=== PATIENT | male | born 1950 | race African-American/Black ===

== ENCOUNTER 2017-08-26 11:47 | Emergency (ER) | payer MEDICAID, OTHER, SELFPAY ==
[~2017-08-26] VITALS: Ht 172.7 cm; Wt 73.0 kg
[2017-08-26] MEDS ORDERED: UNKNOWN BP MED (11:56)
[2017-08-26] MEDS ORDERED: ACETAMINOPHEN 325MG TABLET PO ONE (14:45)
[2017-08-26] MEDS ORDERED: SODIUM CHLORIDE 0.9% 1,000 ML IV ONE (16:18)
[2017-08-26 19:05] VITALS: BP 96/55
== END 2017-08-26 19:16 | disposition home or self-care (01) ==
LOC: EDSEX 12:56 → ER 12:56
DX: M25.521 Pain in right elbow (principal); R06.02 Shortness of breath; R07.89 Other chest pain; I10 Essential (primary) hypertension; R51 Headache; V43.52XA Car driver injured in collision with other type car in traffic accident, initial encounter; Y93.89 Activity, other specified; Y92.410 Unspecified street and highway as the place of occurrence of the external cause; Y99.8 Other external cause status
CPT/HCPCS: 70450; 71111; 73080; 74176; 93005; 96360; 99284; J7030; Z7610

== ENCOUNTER 2022-07-15 16:48 | Inpatient (IN) | payer MEDICARE, MEDICAID ==
[~2022-07-15] VITALS: Ht 172.7 cm; Wt 66.0 kg
[~2022-07-15 16:48] MED LIST: UNKNOWN BP MED
[2022-07-15 17:22] LABS: BG BASE EXCESS -3.7 mmol/L (-2.0-2.0); BG CARBOXYHEMOGLOBIN 2.7 % (0.5-1.5); BG HCO3 ACT 17.9 mmol/L (22.0-26.0); BG METHEMOGLOBIN 0.2 % (0.0-1.5); BG OXYGEN SATURATION 96.9 % (92.0-98.5); BG OXYHEMOGLOBIN 94.1 % (94.0-97.0); BG PCO2 24.7 mmHg (35.0-45.0); BG PH 7.478 (7.350-7.450); BG PO2 82.6 mmHg (75.0-100.0); BG SAMPLE SITE RIGHT RADIAL; BG TOTAL HEMOGLOBIN 14.6 g/dL (12.0-18.0); BG VENT MODE ROOM AIR
[2022-07-15 18:16] LABS: BASOPHILS % 0.5 % (0.0-2.0); EOSINOPHILS % 2.9 % (0.0-5.0); HEMATOCRIT. 45.4 % (42.0-52.0); HEMOGLOBIN. 15.5 g/dL (14.0-18.0); LYMPHOCYTES % 21.1 % (20.0-50.0); MEAN CORPUSCULAR HEMOGLOBIN 30.8 pg (28.0-32.0); MEAN CORPUSCULAR VOLUME 90.4 fL (80.0-94.0); MEAN PLATELET VOLUME 7.7 fl (7.4-10.4); MONOCYTES % 6.6 % (2.0-8.0); NEUTROPHILS % 68.9 % (40.0-76.0); PLATELET 227 x1000/uL (130-400); RED BLOOD CELL COUNT 5.03 mill/uL (4.7-6.1); RED CELL DISTRIBUTION WIDTH 15.1 % (11.6-14.6)
[2022-07-15 18:29] LABS: CHLORIDE 101 mEq/L (98-107)
[2022-07-15 18:42] LABS: ETHANOL BLOOD 13 mg/dL
[2022-07-15] MEDS ORDERED: FUROSEMIDE 20MG/2ML VIAL IVP SCH (20:15)
[2022-07-15] MEDS ORDERED: ASPIRIN 325MG EC TABLET PO NR (20:15)
[2022-07-15] MEDS ORDERED: MORPHINE SULFATE 4 MG/ML CPJ (NOT FOR IM USE) IV SCH (20:15)
[2022-07-15] MEDS ORDERED: MAGNESIUM/ALUMINUM HYDROXIDE/SIMETHICONE 30ML UDC PO PRN (23:00)
[2022-07-15] MEDS ORDERED: ONDANSETRON HCL 4MG/2ML INJ IV PRN (23:00)
[2022-07-15] MEDS ORDERED: IPRATROPIUM/ALBUTEROL 0.5-3(2.5)MG/3ML NEB HHN PRN (23:00)
[2022-07-15] MEDS ORDERED: HYDROCODONE/ACETAMINOPHEN 5/325MG TABLET PO PRN (23:00)
[2022-07-15] MEDS ORDERED: DOCUSATE SODIUM 100MG CAPSULE PO PRN (23:00)
[2022-07-15] MEDS ORDERED: ACETAMINOPHEN 325MG TABLET PO PRN (23:00)
[2022-07-15] MEDS ORDERED: NALOXONE HCL 0.4MG/ML VIAL IV PRN (23:15)
[2022-07-16] VITALS (9 sets, daily range): BP systolic 138–197; BP diastolic 62–97
[2022-07-16] MEDS ORDERED: ASPIRIN 81MG TABLET PO SCH (00:30)
[2022-07-16 01:45] LABS: CLARITY URINE CLEAR (CLEAR); COLOR URINE YELLOW (YELLOW); KETONES URINE NEGATIVE (NEGATIVE); LEUKOCYTE ESTERASE URINE NEGATIVE (NEGATIVE); NITRITE URINE NEGATIVE (NEGATIVE); OCCULT BLOOD URINE NEGATIVE (NEGATIVE); PH URINE 6.5 (4.5-8.0); PROTEIN URINE NEGATIVE (NEGATIVE); SPECIFIC GRAVITY URINE 1.008 (1.005-1.030); UROBILINOGEN URINE 0.2 E.U./dL (0.2-1.0)
[2022-07-16] MEDS ORDERED: ENOXAPARIN 40MG/0.4ML SYR SUBCUT SCH (09:00)
[2022-07-16 09:50] LABS: BASOPHILS % 0.8 % (0.0-2.0); EOSINOPHILS % 10.5 % (0.0-5.0); HEMATOCRIT. 37.7 % (42.0-52.0); HEMOGLOBIN. 12.9 g/dL (14.0-18.0); LYMPHOCYTES % 31.8 % (20.0-50.0); MEAN CORPUSCULAR HEMOGLOBIN 30.7 pg (28.0-32.0); MEAN CORPUSCULAR VOLUME 89.8 fL (80.0-94.0); MONOCYTES % 7.6 % (2.0-8.0); NEUTROPHILS % 49.3 % (40.0-76.0); PLATELET 175 x1000/uL (130-400); RED CELL DISTRIBUTION WIDTH 14.7 % (11.6-14.6)
[2022-07-16 09:58] LABS: INR 1.1; PROTHROMBIN TIME 11.5 sec (9.6-11.0)
[2022-07-16] MEDS: CLOPIDOGREL 75MG TABLET PO SCH (11:48)
[2022-07-16] MEDS: CLONIDINE 0.1MG TABLET PO PRN ×2 (18:31→21:45)
[2022-07-16 20:30] LABS: *AMPHETAMINES SCREEN URINE NEGATIVE (NEGATIVE)
[2022-07-16 20:31] LABS: *BARBITURATES SCREEN URINE NEGATIVE (NEGATIVE); *BENZODIAZEPINES SCREEN URINE NEGATIVE (NEGATIVE); *COCAINE SCREEN URINE NEGATIVE (NEGATIVE); CANNABINOID URINE SCREEN NEGATIVE (NEGATIVE); METHADONE URINE SCREEN NEGATIVE (NEGATIVE); OPIATES URINE SCREEN NEGATIVE (NEGATIVE); PHENCYCLIDINE URINE SCREEN NEGATIVE (NEGATIVE)
[2022-07-16 20:47] LABS: CHLORIDE 104 mEq/L (98-107)
[2022-07-16] MEDS: ATORVASTATIN CALCIUM 40MG TABLET PO SCH ×2 (21:43→21:53)
[2022-07-16 22:05] LABS: CREATINE KINASE 46 IU/L (39-308); CREATINE KINASE MB FRACTION 1.5 ng/mL (0.5-3.6); HDL CHOLESTEROL 50 mg/dL (40-59); LDL CHOLESTEROL 55 mg/dL (5-100)
[2022-07-17] VITALS (9 sets, daily range): BP systolic 150–182; BP diastolic 73–125
[2022-07-17 00:57] LABS: CREATINE KINASE MB FRACTION 1.3 ng/mL (0.5-3.6)
[2022-07-17 06:48] LABS: BASOPHILS % 0.7 % (0.0-2.0); EOSINOPHILS % 13.6 % (0.0-5.0); HEMATOCRIT. 35.1 % (42.0-52.0); LYMPHOCYTES % 26.3 % (20.0-50.0); MEAN CORPUSCULAR HEMOGLOBIN 30.9 pg (28.0-32.0); MEAN CORPUSCULAR VOLUME 90.5 fL (80.0-94.0); MEAN PLATELET VOLUME 8.1 fl (7.4-10.4); MONOCYTES % 7.7 % (2.0-8.0); NEUTROPHILS % 51.7 % (40.0-76.0); PLATELET 145 x1000/uL (130-400); RED BLOOD CELL COUNT 3.87 mill/uL (4.7-6.1); RED CELL DISTRIBUTION WIDTH 14.4 % (11.6-14.6)
[2022-07-17] MEDS: ASPIRIN 81MG TABLET PO SCH (08:25)
[2022-07-17] MEDS: ENOXAPARIN 60MG/0.6ML SYR SUBCUT SCH ×2 (08:25→20:35)
[2022-07-17] MEDS: CLOPIDOGREL 75MG TABLET PO SCH (08:25)
[2022-07-17] MEDS ORDERED: LOSARTAN POTASSIUM 25 MG TABLET PO SCH (09:00)
[2022-07-17] MEDS ORDERED: NITROGLYCERIN SPRAY/4.9GM CAN TL ONE (10:45)
[2022-07-17] MEDS: HYDRALAZINE 20MG/ML VIAL IV PRN (11:57)
[2022-07-17] MEDS ORDERED: IOHEXOL-350 100 ML BOTTLE ONE (13:11)
[2022-07-17] MEDS ORDERED: AMLODIPINE 5MG TABLET PO NR (16:49)
[2022-07-17 20:35] LABS: T4 FREE 1.1 ng/dL (0.76-1.46)
[2022-07-17] MEDS: PANTOPRAZOLE 40MG DR TABLET PO SCH (20:35)
[2022-07-17 21:05] LABS: CHLORIDE 106 mEq/L (98-107)
[2022-07-18 00:14] VITALS: BP 136/86
[2022-07-18 04:00] VITALS: BP 157/94
[2022-07-18] MEDS: PANTOPRAZOLE 40MG DR TABLET PO SCH ×2 (06:18→22:08)
[2022-07-18 06:27] LABS: BASOPHILS % 0.8 % (0.0-2.0); EOSINOPHILS % 12.3 % (0.0-5.0); HEMATOCRIT. 36.1 % (42.0-52.0); HEMOGLOBIN. 12.3 g/dL (14.0-18.0); LYMPHOCYTES % 29.7 % (20.0-50.0); MEAN CORPUSCULAR HEMOGLOBIN 30.6 pg (28.0-32.0); MEAN PLATELET VOLUME 8.2 fl (7.4-10.4); MONOCYTES % 7.5 % (2.0-8.0); NEUTROPHILS % 49.7 % (40.0-76.0); PLATELET 154 x1000/uL (130-400); RED BLOOD CELL COUNT 4.01 mill/uL (4.7-6.1); RED CELL DISTRIBUTION WIDTH 14.2 % (11.6-14.6)
[2022-07-18] MEDS: ASPIRIN 81MG TABLET PO SCH ×2 (07:31→14:10)
[2022-07-18] MEDS: ENOXAPARIN 60MG/0.6ML SYR SUBCUT SCH (07:32)
[2022-07-18] MEDS: CLOPIDOGREL 75MG TABLET PO SCH ×2 (07:32→14:10)
[2022-07-18 08:00] VITALS: BP 148/76
[2022-07-18] MEDS: HYDRALAZINE 20MG/ML VIAL IV PRN (08:08)
[2022-07-18 08:59] LABS: CHLORIDE 105 mEq/L (98-107)
[2022-07-18] MEDS: AMLODIPINE 10MG TABLET PO SCH ×2 (09:00→14:13)
[2022-07-18] MEDS: LOSARTAN POTASSIUM 25 MG TABLET PO SCH ×2 (09:00→22:11)
[2022-07-18 12:00] VITALS: BP 166/77
[2022-07-18] MEDS: HYDRALAZINE HCL 50MG TABLET PO SCH ×2 (14:12→23:20)
[2022-07-18] MEDS ORDERED: IODIXANOL 320MG/ML 100 ML BOTTLE IV ONE (14:13)
[2022-07-18] MEDS ORDERED: MIDAZOLAM HCL 2 MG/2 ML VIAL ONE (15:03)
[2022-07-18] MEDS ORDERED: HEPARIN 1000 UNITS/ML 10ML ONE (15:04)
[2022-07-18] MEDS ORDERED: FENTANYL CITRATE/PF 50MCG/ML 2ML VIAL ONE (15:04)
[2022-07-18] MEDS ORDERED: LIDOCAINE HCL/PF 2% 20MG/ML 5 ML/VIAL ONE (15:05)
[2022-07-18] MEDS ORDERED: ENOXAPARIN 80MG/0.8ML SYR SUBCUT SCH (15:33)
[2022-07-18] MEDS ORDERED: ACETAMINOPHEN 325MG TABLET PO PRN (15:45)
[2022-07-18] MEDS ORDERED: ATROPINE SULFATE 1MG/10ML SYR IV PRN (15:45)
[2022-07-18 16:10] VITALS: BP 146/106
[2022-07-18 20:00] VITALS: BP 107/44
[2022-07-18] MEDS: ATORVASTATIN CALCIUM 40MG TABLET PO SCH (22:08)
[2022-07-18] MEDS: ENOXAPARIN 80MG/0.8ML SYR SUBCUT SCH (22:10)
[2022-07-19] VITALS: BP 113/47
[2022-07-19 04:00] VITALS: BP 135/67
[2022-07-19] MEDS: PANTOPRAZOLE 40MG DR TABLET PO SCH ×2 (06:22→21:34)
[2022-07-19] MEDS: HYDRALAZINE HCL 50MG TABLET PO SCH ×3 (06:27→23:11)
[2022-07-19 07:41] LABS: BASOPHILS % 0.8 % (0.0-2.0); EOSINOPHILS % 10.6 % (0.0-5.0); HEMOGLOBIN. 13.1 g/dL (14.0-18.0); LYMPHOCYTES % 29.1 % (20.0-50.0); MEAN CORPUSCULAR HEMOGLOBIN 30.1 pg (28.0-32.0); MEAN CORPUSCULAR VOLUME 89.4 fL (80.0-94.0); MEAN PLATELET VOLUME 8.4 fl (7.4-10.4); MONOCYTES % 6.1 % (2.0-8.0); NEUTROPHILS % 53.4 % (40.0-76.0); PLATELET 174 x1000/uL (130-400); RED BLOOD CELL COUNT 4.36 mill/uL (4.7-6.1); RED CELL DISTRIBUTION WIDTH 14.3 % (11.6-14.6)
[2022-07-19 08:00] VITALS: BP 133/63
[2022-07-19 08:14] LABS: CHLORIDE 105 mEq/L (98-107)
[2022-07-19] MEDS: CLOPIDOGREL 75MG TABLET PO SCH (10:31)
[2022-07-19] MEDS: ENOXAPARIN 80MG/0.8ML SYR SUBCUT SCH ×2 (10:32→21:35)
[2022-07-19] MEDS: ASPIRIN 81MG TABLET PO SCH (10:32)
[2022-07-19] MEDS: LOSARTAN POTASSIUM 25 MG TABLET PO SCH ×2 (10:32→21:34)
[2022-07-19 12:00] VITALS: BP 140/79
[2022-07-19 16:00] VITALS: BP 143/91
[2022-07-19] MEDS: ACETAMINOPHEN 325MG TABLET PO PRN (17:54)
[2022-07-19 20:00] VITALS: BP 163/61
[2022-07-19] MEDS: ATORVASTATIN CALCIUM 40MG TABLET PO SCH (21:34)
[2022-07-19] MEDS: GUAIFENESIN 200MG/10ML SUGAR FREE UDC PO PRN (23:11)
[2022-07-20] VITALS: BP 136/54
[2022-07-20 04:00] VITALS: BP 144/68
[2022-07-20] MEDS: PANTOPRAZOLE 40MG DR TABLET PO SCH ×2 (05:59→20:46)
[2022-07-20] MEDS: HYDRALAZINE HCL 50MG TABLET PO SCH ×3 (06:03→21:10)
[2022-07-20 08:03] VITALS: BP 135/65
[2022-07-20] MEDS: AMLODIPINE 10MG TABLET PO SCH (09:22)
[2022-07-20] MEDS: ENOXAPARIN 80MG/0.8ML SYR SUBCUT SCH (09:22)
[2022-07-20] MEDS: LOSARTAN POTASSIUM 25 MG TABLET PO SCH ×2 (09:22→20:46)
[2022-07-20] MEDS: CLOPIDOGREL 75MG TABLET PO SCH (09:22)
[2022-07-20] MEDS: ASPIRIN 81MG TABLET PO SCH (09:23)
[2022-07-20 12:00] VITALS: BP 142/60
[2022-07-20] MEDS: ACETAMINOPHEN 325MG TABLET PO PRN (12:58)
[2022-07-20 16:00] VITALS: BP 118/56
[2022-07-20 17:57] LABS: HEMOGLOBIN 12.2 g/dL (14.0-18.0); MEAN CORPUSCULAR HEMOGLOBIN 30.4 pg (28.0-32.0); MEAN CORPUSCULAR VOLUME 89.6 fL (80.0-94.0); PLATELET 165 x1000/uL (130-400); RED BLOOD CELL COUNT 4.01 mill/uL (4.7-6.1); RED CELL DISTRIBUTION WIDTH 14.5 % (11.6-14.6)
[2022-07-20 18:36] LABS: CHLORIDE 106 mEq/L (98-107)
[2022-07-20 20:00] VITALS: BP 138/63
[2022-07-20] MEDS: ATORVASTATIN CALCIUM 40MG TABLET PO SCH (20:46)
[2022-07-20] MEDS: ENOXAPARIN 60MG/0.6ML SYR SUBCUT SCH (20:46)
[2022-07-21 04:00] VITALS: BP 132/40
[2022-07-21] MEDS: HYDRALAZINE HCL 50MG TABLET PO SCH ×3 (05:11→21:09)
[2022-07-21 08:00] VITALS: BP 145/71
[2022-07-21] MEDS: ASPIRIN 81MG TABLET PO SCH (10:23)
[2022-07-21] MEDS: LOSARTAN POTASSIUM 25 MG TABLET PO SCH ×2 (10:23→21:07)
[2022-07-21] MEDS: CLOPIDOGREL 75MG TABLET PO SCH (10:24)
[2022-07-21] MEDS: PANTOPRAZOLE 40MG DR TABLET PO SCH ×2 (10:24→21:07)
[2022-07-21] MEDS: AMLODIPINE 10MG TABLET PO SCH (10:24)
[2022-07-21] MEDS: ENOXAPARIN 60MG/0.6ML SYR SUBCUT SCH (10:25)
[2022-07-21 12:00] VITALS: BP 118/77
[2022-07-21] MEDS ORDERED: HYDR-4135 PO (15:40)
[2022-07-21] MEDS ORDERED: APIX5TAB PO (15:40)
[2022-07-21] MEDS ORDERED: LIP40 PO (15:40)
[2022-07-21] MEDS ORDERED: LOSA25TA3 PO (15:40)
[2022-07-21] MEDS ORDERED: AMLO10TA80 PO (15:40)
[2022-07-21] MEDS ORDERED: ASPI-1160 PO (15:40)
[2022-07-21 16:00] VITALS: BP 140/66
[2022-07-21] MEDS: APIXABAN 5 MG TABLET PO SCH (18:24)
[2022-07-21] MEDS: GUAIFENESIN 200MG/10ML SUGAR FREE UDC PO PRN (18:26)
[2022-07-21 20:00] VITALS: BP 149/56
[2022-07-21] MEDS: ATORVASTATIN CALCIUM 40MG TABLET PO SCH (21:07)
[2022-07-22] VITALS: BP 150/66
[2022-07-22 04:00] VITALS: BP 157/77
[2022-07-22] MEDS: PANTOPRAZOLE 40MG DR TABLET PO SCH (06:18)
[2022-07-22] MEDS: HYDRALAZINE HCL 50MG TABLET PO SCH (06:20)
[2022-07-22 08:00] VITALS: BP 138/58
[2022-07-22] MEDS: APIXABAN 5 MG TABLET PO SCH (08:19)
[2022-07-22] MEDS: ASPIRIN 81MG TABLET PO SCH (08:19)
[2022-07-22] MEDS: AMLODIPINE 10MG TABLET PO SCH (08:19)
[2022-07-22] MEDS: LOSARTAN POTASSIUM 25 MG TABLET PO SCH (08:19)
[2022-07-22] MEDS ORDERED: FAMOTIDINE 20MG TABLET PO SCH (21:00)
== END 2022-07-22 09:00 | DRG 280 ==
LOC: ER 16:48 → MICUSO 20:18 → 3WST 07-16 03:16
PROVIDERS: ADMIT Internal Medicine; ATTEND Internal Medicine
PROC: 4A023N7 Measurement of Cardiac Sampling and Pressure, Left Heart, Percutaneous Approach (ICD-10-PCS; principal; 2022-07-18)
PROC: B2151ZZ Fluoroscopy of Left Heart using Low Osmolar Contrast (ICD-10-PCS; 2022-07-18)
PROC: B2111ZZ Fluoroscopy of Multiple Coronary Arteries using Low Osmolar Contrast (ICD-10-PCS; 2022-07-18)
DX: I25.10 Atherosclerotic heart disease of native coronary artery without angina pectoris (principal); I21.4 Non-ST elevation (NSTEMI) myocardial infarction; I50.31 Acute diastolic (congestive) heart failure; E46 Unspecified protein-calorie malnutrition; E87.1 Hypo-osmolality and hyponatremia; E87.20 Acidosis, unspecified; I11.0 Hypertensive heart disease with heart failure; F03.90 Unspecified dementia, unspecified severity, without behavioral disturbance, psychotic disturbance, mood disturbance, and anxiety; E78.5 Hyperlipidemia, unspecified; K21.9 Gastro-esophageal reflux disease without esophagitis; K27.9 Peptic ulcer, site unspecified, unspecified as acute or chronic, without hemorrhage or perforation; Z20.822 Contact with and (suspected) exposure to COVID-19; K80.20 Calculus of gallbladder without cholecystitis without obstruction; I48.0 Paroxysmal atrial fibrillation; Z68.22 Body mass index [BMI] 22.0-22.9, adult; Z95.5 Presence of coronary angioplasty implant and graft; Z87.891 Personal history of nicotine dependence; Z83.3 Family history of diabetes mellitus; Z82.49 Family history of ischemic heart disease and other diseases of the circulatory system; Z79.899 Other long term (current) drug therapy; Z79.01 Long term (current) use of anticoagulants
CPT/HCPCS: 36415; 36600; 71045; 75571; 76700; 80053; 80061; 80305; 80320; 81003; 82375; 82550; 82553; 82805; 82962; 83036; 83605; 83880; 84145; 84439; 84443; 84484; 85025; 85027; 85379; 87426; 87804; 92610; 93005; 93306; 93458; 93970; 97162; 97166; 99285; C1769; C1887; C1893; J0360; J1644; J1650; J1940; J2250; J2270; J3010; J3490; Q9967; G0480

== ENCOUNTER 2022-10-03 09:07 | Inpatient (IN) | payer MEDICARE, MEDICAID ==
[~2022-10-03] VITALS: Ht 157.5 cm; Wt 72.2 kg
[~2022-10-03 09:07] MED LIST changes: +AMLO10TA80 PO; +APIX5TAB PO; +ASPI-1160 PO; +HYDR-4135 PO; +LIP40 PO; +LOSA25TA3 PO; -UNKNOWN BP MED
[2022-10-03] MEDS ORDERED: SODIUM CHLORIDE 0.9% 1,000 ML IV ONE (10:00)
[2022-10-03] MEDS ORDERED: METOPROLOL TARTRATE 5MG/5ML VIAL IV ONE (10:00)
[2022-10-03 10:32] LABS: BASOPHILS % 0.9 % (0.0-2.0); HEMATOCRIT. 37.5 % (42.0-52.0); HEMOGLOBIN. 12.5 g/dL (14.0-18.0); LYMPHOCYTES % 28.1 % (20.0-50.0); MONOCYTES % 7.1 % (2.0-8.0); NEUTROPHILS % 53.9 % (40.0-76.0); PLATELET 271 x1000/uL (130-400); RED BLOOD CELL COUNT 4.17 mill/uL (4.7-6.1); RED CELL DISTRIBUTION WIDTH 15.7 % (11.6-14.6)
[2022-10-03 10:41] LABS: CHLORIDE 106 mEq/L (98-107)
[2022-10-03 10:52] LABS: INR 1.1; PARTIAL THROMBOPLASTIN TIME 32.2 sec (23.4-31.0); PROTHROMBIN TIME 11.9 sec (9.6-11.0)
[2022-10-03 12:59] LABS: CLARITY URINE CLEAR (CLEAR); COLOR URINE YELLOW (YELLOW); KETONES URINE NEGATIVE (NEGATIVE); LEUKOCYTE ESTERASE URINE NEGATIVE (NEGATIVE); NITRITE URINE NEGATIVE (NEGATIVE); OCCULT BLOOD URINE NEGATIVE (NEGATIVE); PH URINE 6.5 (4.5-8.0); PROTEIN URINE 1+ (NEGATIVE); SPECIFIC GRAVITY URINE 1.018 (1.005-1.030)
[2022-10-03 16:39] VITALS: BP 170/81
[2022-10-03] MEDS ORDERED: MAGNESIUM/ALUMINUM HYDROXIDE/SIMETHICONE 30ML UDC PO PRN (17:15)
[2022-10-03] MEDS ORDERED: ACETAMINOPHEN 325MG TABLET PO PRN ×2 (17:15)
[2022-10-03] MEDS ORDERED: IPRATROPIUM/ALBUTEROL 0.5-3(2.5)MG/3ML NEB HHN PRN (17:15)
[2022-10-03] MEDS ORDERED: GUAIFENESIN 200MG/10ML SUGAR FREE UDC PO PRN (17:15)
[2022-10-03] MEDS ORDERED: CLONIDINE 0.1MG TABLET PO PRN (17:15)
[2022-10-03] MEDS ORDERED: ONDANSETRON HCL 4MG/2ML INJ IV PRN (17:15)
[2022-10-03] MEDS ORDERED: MVI, ADULT NO.1 10 ML, FOLIC ACID 1 MG, THIAMINE HCL 100 MG in SODIUM CHLORIDE 0.9% 1,0... IV ONE ×4 (18:30)
[2022-10-03 19:41] LABS: *AMPHETAMINES SCREEN URINE NEGATIVE (NEGATIVE); *BARBITURATES SCREEN URINE NEGATIVE (NEGATIVE); *BENZODIAZEPINES SCREEN URINE NEGATIVE (NEGATIVE); *COCAINE SCREEN URINE NEGATIVE (NEGATIVE); CANNABINOID URINE SCREEN NEGATIVE (NEGATIVE); METHADONE URINE SCREEN NEGATIVE (NEGATIVE); OPIATES URINE SCREEN NEGATIVE (NEGATIVE); PHENCYCLIDINE URINE SCREEN NEGATIVE (NEGATIVE)
[2022-10-03 20:00] VITALS: BP 156/62
[2022-10-04] VITALS: BP 122/57
[2022-10-04 00:34] LABS: CREATINE KINASE MB FRACTION 2.1 ng/mL (0.5-3.6)
[2022-10-04] MEDS ORDERED: ENOXAPARIN 40MG/0.4ML SYR SUBCUT SCH (02:15)
[2022-10-04 04:00] VITALS: BP 96/73
[2022-10-04 08:01] LABS: BASOPHILS % 0.8 % (0.0-2.0); EOSINOPHILS % 10.8 % (0.0-5.0); HEMATOCRIT. 31.1 % (42.0-52.0); HEMOGLOBIN. 10.4 g/dL (14.0-18.0); LYMPHOCYTES % 29.5 % (20.0-50.0); MEAN CORPUSCULAR HEMOGLOBIN 29.6 pg (28.0-32.0); MEAN CORPUSCULAR VOLUME 88.7 fL (80.0-94.0); MEAN PLATELET VOLUME 8.1 fl (7.4-10.4); MONOCYTES % 7.4 % (2.0-8.0); NEUTROPHILS % 51.5 % (40.0-76.0); PLATELET 245 x1000/uL (130-400); RED CELL DISTRIBUTION WIDTH 14.7 % (11.6-14.6)
[2022-10-04 08:10] VITALS: BP 114/61
[2022-10-04 08:13] LABS: CHLORIDE 106 mEq/L (98-107)
[2022-10-04 08:32] LABS: CREATINE KINASE 60 IU/L (39-308); CREATINE KINASE MB FRACTION 1.6 ng/mL (0.5-3.6); HDL CHOLESTEROL 40 mg/dL (40-59); LDL CHOLESTEROL 43 mg/dL (5-100)
[2022-10-04 09:01] LABS: TOTAL IRON BINDING CAPACITY 268 ug/dL (250-450)
[2022-10-04] MEDS: ASPIRIN 81MG EC TABLET PO SCH (09:05)
[2022-10-04 09:33] LABS: FOLIC ACID (FOLATE) SERUM >20 ng/mL ng/mL (>5.38); VITAMIN B12 SERUM 273 pg/mL (211-911)
[2022-10-04] MEDS ORDERED: METOPROLOL TARTRATE 5MG/5ML VIAL IV NR (10:30)
[2022-10-04 11:19] VITALS: BP 138/88
[2022-10-04] MEDS: METOPROLOL TARTRATE 25MG TABLET PO SCH ×2 (11:42→20:07)
[2022-10-04 15:29] VITALS: BP 111/55
[2022-10-04 20:00] VITALS: BP 140/59
[2022-10-04] MEDS: APIXABAN 5 MG TABLET PO SCH (20:06)
[2022-10-04] MEDS: ATORVASTATIN CALCIUM 40MG TABLET PO SCH (20:06)
[2022-10-05] VITALS: BP 136/70
[2022-10-05 04:00] VITALS: BP 121/71
[2022-10-05 08:00] VITALS: BP 120/56
[2022-10-05] MEDS: FAMOTIDINE 20MG TABLET PO SCH ×2 (09:36→21:02)
[2022-10-05] MEDS: ASPIRIN 81MG EC TABLET PO SCH (09:36)
[2022-10-05] MEDS: METOPROLOL TARTRATE 25MG TABLET PO SCH (09:36)
[2022-10-05] MEDS: APIXABAN 5 MG TABLET PO SCH ×2 (09:36→17:21)
[2022-10-05 10:39] LABS: BASOPHILS % 0.8 % (0.0-2.0); EOSINOPHILS % 9.1 % (0.0-5.0); HEMATOCRIT. 38.6 % (42.0-52.0); LYMPHOCYTES % 25.4 % (20.0-50.0); MEAN CORPUSCULAR HEMOGLOBIN 29.1 pg (28.0-32.0); MEAN CORPUSCULAR VOLUME 90.2 fL (80.0-94.0); MONOCYTES % 7.2 % (2.0-8.0); NEUTROPHILS % 57.5 % (40.0-76.0); PLATELET 249 x1000/uL (130-400); RED BLOOD CELL COUNT 4.27 mill/uL (4.7-6.1); RED CELL DISTRIBUTION WIDTH 15.1 % (11.6-14.6)
[2022-10-05] MEDS ORDERED: APIX5TAB PO ×2 (10:57→12:58)
[2022-10-05] MEDS ORDERED: ASPI-1160 PO ×2 (10:57→12:58)
[2022-10-05] MEDS ORDERED: METO25TA6 PO ×3 (10:57→12:58)
[2022-10-05] MEDS ORDERED: LIP40 PO ×2 (10:57→12:58)
[2022-10-05 11:08] LABS: HEMOGLOBIN. 12.5 g/dL (14.0-18.0)
[2022-10-05 11:28] LABS: CHLORIDE 108 mEq/L (98-107)
[2022-10-05 11:44] LABS: PHOSPHORUS 4.1 mg/dL (2.5-4.9)
[2022-10-05] MEDS ORDERED: DIGOXIN 500MCG/2ML AMP IV NR (11:45)
[2022-10-05 12:00] VITALS: BP 112/72
[2022-10-05 20:00] VITALS: BP 163/99
[2022-10-05 20:35] VITALS: BP 116/75
[2022-10-05] MEDS ORDERED: METOPROLOL TARTRATE 50MG TABLET PO SCH (21:00)
[2022-10-05] MEDS: ATORVASTATIN CALCIUM 40MG TABLET PO SCH (21:01)
== END 2022-10-05 23:48 | DRG 280 ==
LOC: ER 09:39 → MICUSO 10:44 → EDBEDREQTM 10:49 → EDBEDREQ 10:49 → 3WST 16:55
PROVIDERS: ADMIT Internal Medicine; ATTEND Internal Medicine
DX: I48.91 Unspecified atrial fibrillation (principal); I21.4 Non-ST elevation (NSTEMI) myocardial infarction; J96.00 Acute respiratory failure, unspecified whether with hypoxia or hypercapnia; E44.1 Mild protein-calorie malnutrition; I48.20 Chronic atrial fibrillation, unspecified; I25.10 Atherosclerotic heart disease of native coronary artery without angina pectoris; I11.0 Hypertensive heart disease with heart failure; F17.210 Nicotine dependence, cigarettes, uncomplicated; F10.10 Alcohol abuse, uncomplicated; Z20.822 Contact with and (suspected) exposure to COVID-19; D64.9 Anemia, unspecified; I95.9 Hypotension, unspecified; Z95.5 Presence of coronary angioplasty implant and graft; Z91.14 Patient's other noncompliance with medication regimen; Z83.3 Family history of diabetes mellitus; Z82.49 Family history of ischemic heart disease and other diseases of the circulatory system; Z79.01 Long term (current) use of anticoagulants; Z68.29 Body mass index [BMI] 29.0-29.9, adult; R55 Syncope and collapse
CPT/HCPCS: 36415; 71045; 80053; 80061; 80305; 81003; 82550; 82553; 82607; 82746; 83036; 83540; 83550; 83735; 83880; 84100; 84439; 84443; 84484; 85025; 85379; 87426; 93005; 93306; 93970; 97162; 99291; C1893; J1160; J1650; J3411; J3490; J7030

== ENCOUNTER 2022-11-13 13:34 | Emergency (ER) | payer MEDICARE, MEDICAID ==
[~2022-11-13] VITALS: Ht 175.3 cm; Wt 80.0 kg
[~2022-11-13 13:34] MED LIST changes: -AMLO10TA80 PO; -HYDR-4135 PO; -LOSA25TA3 PO; +METO25TA6 PO
[2022-11-13 13:46] VITALS: BP 158/86
[2022-11-13 14:35] LABS: BASOPHILS % 0.6 % (0.0-2.0); EOSINOPHILS % 8.8 % (0.0-5.0); HEMATOCRIT. 33.9 % (42.0-52.0); HEMOGLOBIN. 10.9 g/dL (14.0-18.0); LYMPHOCYTES % 33.9 % (20.0-50.0); MEAN CORPUSCULAR HEMOGLOBIN 26.4 pg (28.0-32.0); MEAN CORPUSCULAR VOLUME 82.2 fL (80.0-94.0); MEAN PLATELET VOLUME 8.3 fl (7.4-10.4); MONOCYTES % 8.4 % (2.0-8.0); NEUTROPHILS % 48.3 % (40.0-76.0); PLATELET 203 x1000/uL (130-400); RED BLOOD CELL COUNT 4.13 mill/uL (4.7-6.1); RED CELL DISTRIBUTION WIDTH 15.5 % (11.6-14.6)
[2022-11-13 14:40] LABS: CHLORIDE 106 mEq/L (98-107)
== END 2022-11-13 16:03 | disposition home or self-care (01) ==
LOC: ER 13:39 → CANBEDREQ 11-14 07:30
DX: R07.89 Other chest pain (principal); I11.0 Hypertensive heart disease with heart failure; I50.9 Heart failure, unspecified
CPT/HCPCS: 36415; 71045; 80053; 84484; 85025; 99284

== ENCOUNTER 2022-12-19 00:29 | Inpatient (IN) | payer MEDICARE, MEDICAID ==
[~2022-12-19] VITALS: Ht 182.9 cm; Wt 75.3 kg
[2022-12-19] MEDS ORDERED: MORPHINE SULFATE 4 MG/ML CPJ (NOT FOR IM USE) IV STA (00:55)
[2022-12-19] MEDS ORDERED: ONDANSETRON HCL 4MG/2ML INJ IV STA (00:55)
[2022-12-19] MEDS ORDERED: METOPROLOL TARTRATE 5MG/5ML VIAL IV SCH (01:00)
[2022-12-19] MEDS ORDERED: ASPIRIN 81MG TABLET PO ONE (01:00)
[2022-12-19 02:33] LABS: BASOPHILS % 0.7 % (0.0-2.0); EOSINOPHILS % 8.8 % (0.0-5.0); HEMATOCRIT. 34.7 % (42.0-52.0); HEMOGLOBIN. 11.1 g/dL (14.0-18.0); MEAN CORPUSCULAR HEMOGLOBIN 24.8 pg (28.0-32.0); MEAN CORPUSCULAR VOLUME 77.6 fL (80.0-94.0); MEAN PLATELET VOLUME 8.4 fl (7.4-10.4); MONOCYTES % 8.1 % (2.0-8.0); NEUTROPHILS % 53.4 % (40.0-76.0); PLATELET 207 x1000/uL (130-400); RED BLOOD CELL COUNT 4.47 mill/uL (4.7-6.1); RED CELL DISTRIBUTION WIDTH 16.6 % (11.6-14.6)
[2022-12-19 02:44] LABS: CHLORIDE 110 mEq/L (98-107)
[2022-12-19] MEDS ORDERED: ASPIRIN 81MG TABLET PO NR (03:15)
[2022-12-19] MEDS ORDERED: ONDANSETRON HCL 4MG/2ML INJ IV NR (03:15)
[2022-12-19] MEDS ORDERED: MORPHINE SULFATE 4 MG/ML CPJ (NOT FOR IM USE) IV NR (03:15)
[2022-12-19] MEDS ORDERED: ONDANSETRON HCL 4MG/2ML INJ IV PRN (06:30)
[2022-12-19] MEDS ORDERED: NITROGLYCERIN 0.4MG TABLET SL SL PRN (06:30)
[2022-12-19] MEDS ORDERED: CLONIDINE 0.1MG TABLET PO PRN (06:30)
[2022-12-19] MEDS ORDERED: TRAMADOL 50MG TABLET PO PRN (06:30)
[2022-12-19] MEDS ORDERED: IPRATROPIUM/ALBUTEROL 0.5-3(2.5)MG/3ML NEB NEB PRN (06:30)
[2022-12-19] MEDS ORDERED: GUAIFENESIN 200MG/10ML SUGAR FREE UDC PO PRN (06:30)
[2022-12-19] MEDS ORDERED: NALOXONE HCL 0.4MG/ML VIAL IV PRN (06:30)
[2022-12-19] MEDS ORDERED: ACETAMINOPHEN 325MG TABLET PO PRN ×2 (06:30)
[2022-12-19] MEDS ORDERED: MAGNESIUM/ALUMINUM HYDROXIDE/SIMETHICONE 30ML UDC PO PRN (06:30)
[2022-12-19] MEDS ORDERED: DOCUSATE SODIUM 100MG CAPSULE PO PRN (06:30)
[2022-12-19 07:33] LABS: ETHANOL BLOOD < 10 mg/dL; HDL CHOLESTEROL 39 mg/dL (40-59); LDL CHOLESTEROL 38 mg/dL (5-100); T4 FREE 1.18 ng/dL (0.76-1.46); TOTAL IRON BINDING CAPACITY 326 ug/dL (250-450)
[2022-12-19 07:36] LABS: DIGOXIN < 0.1 ng/mL (0.9-2.0)
[2022-12-19 08:42] LABS: VITAMIN B12 SERUM 309 pg/mL (211-911)
[2022-12-19 08:44] LABS: FOLIC ACID (FOLATE) SERUM > 20.00 ng/mL (>5.38)
[2022-12-19] MEDS ORDERED: METOPROLOL TARTRATE 25MG TABLET PO SCH (09:00)
[2022-12-19 09:06] VITALS: BP 185/76
[2022-12-19] MEDS ORDERED: METOPROLOL TARTRATE 5MG/5ML VIAL IV PRN (09:45)
[2022-12-19] MEDS ORDERED: FUROSEMIDE 40MG/4ML VIAL IVP SCH (09:45)
[2022-12-19] MEDS: FAMOTIDINE 20MG TABLET PO SCH ×2 (10:30→20:17)
[2022-12-19] MEDS: METOPROLOL TARTRATE 25MG TABLET PO SCH ×2 (10:31→20:17)
[2022-12-19] MEDS: SPIRONOLACTONE 25MG TABLET PO SCH (10:32)
[2022-12-19] MEDS: APIXABAN 5 MG TABLET PO SCH ×2 (10:33→17:54)
[2022-12-19 12:00] VITALS: BP 202/84
[2022-12-19] MEDS ORDERED: FUROSEMIDE 100MG/10ML VIAL IVP SCH (15:30)
[2022-12-19] MEDS: AMLODIPINE 10MG TABLET PO SCH (15:56)
[2022-12-19 16:00] VITALS: BP 159/40
[2022-12-19] MEDS ORDERED: HYDRALAZINE 20MG/ML VIAL IV PRN (17:00)
[2022-12-19] MEDS: ISOSORBIDE MONONITRATE 60MG TABLET SR 24HR PO SCH (17:55)
[2022-12-19] MEDS: LOSARTAN POTASSIUM 25 MG TABLET PO SCH (17:55)
[2022-12-19] MEDS: FUROSEMIDE 40MG/4ML VIAL IVP SCH (17:56)
[2022-12-19] MEDS ORDERED: DIGOXIN 125MCG TABLET PO SCH (18:00)
[2022-12-19 19:59] VITALS: BP 117/55
[2022-12-19] MEDS: ATORVASTATIN CALCIUM 40MG TABLET PO SCH (20:17)
[2022-12-19] MEDS ORDERED: ZOLPIDEM TARTRATE 5MG TABLET PO PRN (21:00)
[2022-12-20 00:05] VITALS: BP 104/48
[2022-12-20 04:00] VITALS: BP 99/46
[2022-12-20] MEDS: APIXABAN 5 MG TABLET PO SCH ×2 (05:46→17:34)
[2022-12-20] MEDS: FUROSEMIDE 40MG/4ML VIAL IVP SCH ×2 (05:46→17:34)
[2022-12-20 08:00] VITALS: BP 96/88
[2022-12-20] MEDS: LOSARTAN POTASSIUM 25 MG TABLET PO SCH (09:00)
[2022-12-20] MEDS: ISOSORBIDE MONONITRATE 60MG TABLET SR 24HR PO SCH (09:00)
[2022-12-20] MEDS: SPIRONOLACTONE 25MG TABLET PO SCH (09:00)
[2022-12-20] MEDS ORDERED: ASPIRIN 81MG EC TABLET PO SCH (09:00)
[2022-12-20] MEDS: AMLODIPINE 10MG TABLET PO SCH (09:00)
[2022-12-20] MEDS: METOPROLOL TARTRATE 25MG TABLET PO SCH ×2 (09:07→20:32)
[2022-12-20] MEDS: FAMOTIDINE 20MG TABLET PO SCH ×2 (09:08→20:32)
[2022-12-20 12:00] VITALS: BP 121/98
[2022-12-20 16:00] VITALS: BP 132/63
[2022-12-20 19:49] VITALS: BP 142/65
[2022-12-20] MEDS: ATORVASTATIN CALCIUM 40MG TABLET PO SCH (20:32)
[2022-12-21 00:05] VITALS: BP 138/67
[2022-12-21 04:00] VITALS: BP 140/63
[2022-12-21] MEDS: APIXABAN 5 MG TABLET PO SCH ×2 (05:23→18:46)
[2022-12-21] MEDS: FUROSEMIDE 40MG/4ML VIAL IVP SCH ×2 (05:24→18:00)
[2022-12-21 08:00] VITALS: BP 139/63
[2022-12-21] MEDS: METOPROLOL TARTRATE 25MG TABLET PO SCH ×2 (09:06→20:24)
[2022-12-21] MEDS: ISOSORBIDE MONONITRATE 60MG TABLET SR 24HR PO SCH (09:07)
[2022-12-21] MEDS: ASPIRIN 81MG TABLET PO SCH (09:08)
[2022-12-21] MEDS: SPIRONOLACTONE 25MG TABLET PO SCH (09:08)
[2022-12-21] MEDS: FAMOTIDINE 20MG TABLET PO SCH ×2 (09:08→20:23)
[2022-12-21] MEDS: AMLODIPINE 10MG TABLET PO SCH (09:08)
[2022-12-21 12:00] VITALS: BP 119/61
[2022-12-21 14:03] LABS: CHLORIDE 105 mEq/L (98-107)
[2022-12-21 16:00] VITALS: BP 125/61
[2022-12-21 20:00] VITALS: BP 154/68
[2022-12-21] MEDS: ATORVASTATIN CALCIUM 40MG TABLET PO SCH (20:23)
[2022-12-22 00:05] VITALS: BP 111/57
[2022-12-22 04:00] VITALS: BP 132/69
[2022-12-22] MEDS: FUROSEMIDE 40MG/4ML VIAL IVP SCH (05:34)
[2022-12-22] MEDS: APIXABAN 5 MG TABLET PO SCH (05:34)
[2022-12-22 07:54] VITALS: BP 150/72
[2022-12-22] MEDS: SPIRONOLACTONE 25MG TABLET PO SCH (09:28)
[2022-12-22] MEDS: ASPIRIN 81MG TABLET PO SCH (09:28)
[2022-12-22] MEDS: ISOSORBIDE MONONITRATE 60MG TABLET SR 24HR PO SCH (09:28)
[2022-12-22] MEDS: METOPROLOL TARTRATE 25MG TABLET PO SCH (09:28)
[2022-12-22] MEDS: FAMOTIDINE 20MG TABLET PO SCH (09:28)
[2022-12-22] MEDS: AMLODIPINE 10MG TABLET PO SCH (09:29)
[2022-12-22 11:51] VITALS: BP 124/62
[2022-12-22 16:06] VITALS: BP 151/67
[2022-12-22 16:41] VITALS: BP 151/67
== END 2022-12-22 17:59 | DRG 91 ==
LOC: ER 01:23 → 7WST 04:06 → SUPCPDRO 06:16 → ER 08:15
PROVIDERS: ADMIT Internal Medicine; ATTEND Internal Medicine
DX: G92.8 Other toxic encephalopathy (principal); I50.43 Acute on chronic combined systolic (congestive) and diastolic (congestive) heart failure; I16.1 Hypertensive emergency; E44.0 Moderate protein-calorie malnutrition; I11.0 Hypertensive heart disease with heart failure; I48.91 Unspecified atrial fibrillation; R73.03 Prediabetes; M94.0 Chondrocostal junction syndrome [Tietze]; I25.10 Atherosclerotic heart disease of native coronary artery without angina pectoris; E78.00 Pure hypercholesterolemia, unspecified; E83.51 Hypocalcemia; Z68.22 Body mass index [BMI] 22.0-22.9, adult; Z95.5 Presence of coronary angioplasty implant and graft; Z83.3 Family history of diabetes mellitus; Z82.49 Family history of ischemic heart disease and other diseases of the circulatory system
CPT/HCPCS: 36415; 70551; 71045; 80048; 80053; 80061; 80162; 80320; 82607; 82746; 83036; 83540; 83550; 83735; 83880; 84439; 84443; 84484; 85025; 93005; 93306; 93970; 97162; 99285; J1940; J2270; J2405; J3490; G0480

== ENCOUNTER 2024-05-19 10:15 | Inpatient (IN) | payer MEDICARE, MEDICAID ==
[~2024-05-19] VITALS: Ht 170.2 cm; Wt 72.6 kg
[~2024-05-19 10:15] MED LIST changes: +AMI2 MT; +CLOP-31 MT; +FURO-151 MT; +METO25TA6 MT
[2024-05-19 13:17] LABS: BASOPHILS % 0.8 % (0.0-2.0); EOSINOPHILS % 7.2 % (0.0-5.0); HEMATOCRIT. 43.6 % (42.0-52.0); HEMOGLOBIN. 14.1 g/dL (14.0-18.0); LYMPHOCYTES % 31.3 % (20.0-50.0); MEAN CORPUSCULAR HEMOGLOBIN 29.8 pg (28.0-32.0); MEAN CORPUSCULAR HGB CONC 32.3 g/dL (31.0-37.0); MEAN CORPUSCULAR VOLUME 92.2 fL (80.0-94.0); MEAN PLATELET VOLUME 7.9 fl (7.4-10.4); NEUTROPHILS % 55.7 % (40.0-76.0); PLATELET 158 x1000/uL (130-400); RED BLOOD CELL COUNT 4.73 mill/uL (4.7-6.1); RED CELL DISTRIBUTION WIDTH 15.4 % (11.6-14.6); WHITE BLOOD COUNT 5.4 x1000/uL (4.5-11.0)
[2024-05-19 13:20] LABS: CHLORIDE 106 mEq/L (98-107); POTASSIUM 3.5 mEq/L (3.5-5.1); SODIUM 139 mEq/L (136-145)
[2024-05-19 13:22] LABS: CALCIUM 9.2 mg/dL (8.7-10.4); CARBON DIOXIDE 29 mEq/L (21-32)
[2024-05-19 13:27] LABS: CREATININE 0.7 mg/dL (0.6-1.3); GLUCOSE 90 mg/dL (70-105); UREA NITROGEN BLOOD 9 mg/dL (9-23)
[2024-05-19 13:28] LABS: ALANINE AMINOTRANSFERASE 15 IU/L (10-49); ASPARTATE AMINOTRANSFERASE 20 IU/L (<34); D-DIMER 0.42 mg/L FEU (<0.50); INR 1.1; PARTIAL THROMBOPLASTIN TIME 29.9 sec (23.4-31.0); PROTHROMBIN TIME 11.8 sec (9.6-11.0)
[2024-05-19 13:29] LABS: ALBUMIN 3.7 g/dL (3.2-4.8); BILIRUBIN DIRECT 0.2 mg/dL (<=3.0); BILIRUBIN TOTAL 0.6 mg/dL (0.1-1.0); PROTEIN TOTAL 6.5 g/dL (6.0-8.3); TROPONIN I HIGH SENSITIVITY 10 ng/L (3.0-53)
[2024-05-19] MEDS: HYDRALAZINE 20MG/ML VIAL IV PRN (17:06)
[2024-05-19 18:05] VITALS: PULSE 57; RESP 20; TEMP 36.50292; O2SAT 99
[2024-05-19 18:18] VITALS: BP 160/62; PULSE 57; RESP 20; TEMP 36.5292
[2024-05-19] MEDS ORDERED: METO25TA6 PO (18:44)
[2024-05-19] MEDS ORDERED: DEXTROSE 50% WATER 50ML SYRINGE IV PRN (18:45)
[2024-05-19] MEDS ORDERED: ONDANSETRON HCL 4MG/2ML INJ IV PRN (18:45)
[2024-05-19 20:00] VITALS: BP 163/115; PULSE 58; RESP 18; TEMP 37.00296
[2024-05-19] MEDS: CLOPIDOGREL 75MG TABLET PO SCH (20:00)
[2024-05-19] MEDS: BLOOD SUGAR DIAGNOSTIC STRIP TEST SCH (20:36)
[2024-05-19] MEDS: ATORVASTATIN CALCIUM 40MG TABLET PO SCH (20:42)
[2024-05-19] MEDS: APIXABAN 5 MG TABLET PO SCH (20:43)
[2024-05-19] MEDS: AMLODIPINE 10MG TABLET PO SCH (20:59)
[2024-05-19] MEDS: INSULIN LISPRO 100 UNITS/ML SUBCUT SCH (21:00)
[2024-05-19] MEDS: HYDRALAZINE HCL 50MG TABLET PO SCH (22:00)
[2024-05-19 22:12] VITALS: BP 115/85; RESP 18; O2SAT 98
[2024-05-19 22:34] VITALS: BP 163/115; PULSE 58; RESP 17; TEMP 37.00296; O2SAT 98
[2024-05-19] MEDS: HYDROCODONE/ACETAMINOPHEN 5/325MG TABLET PO PRN (23:08)
[2024-05-20] VITALS: BP 125/75; PULSE 68; RESP 19; O2SAT 98
[2024-05-20 04:00] VITALS: BP 120/57; PULSE 55; RESP 17; TEMP 36.9474; O2SAT 99
[2024-05-20 07:08] LABS: CHLORIDE 106 mEq/L (98-107); POTASSIUM 3.5 mEq/L (3.5-5.1); SODIUM 139 mEq/L (136-145)
[2024-05-20 07:09] LABS: CALCIUM 9.2 mg/dL (8.7-10.4); CARBON DIOXIDE 28 mEq/L (21-32)
[2024-05-20 07:14] LABS: CREATININE 0.8 mg/dL (0.6-1.3); GLUCOSE 88 mg/dL (70-105)
[2024-05-20 07:15] LABS: LDL CHOLESTEROL 47 mg/dL (5-100); TRIGLYCERIDE 70 mg/dL (0-150); UREA NITROGEN BLOOD 13 mg/dL (9-23)
[2024-05-20 07:17] LABS: BASOPHILS % 0.8 % (0.0-2.0); CHOLESTEROL 106 mg/dL (<200); EOSINOPHILS % 5.8 % (0.0-5.0); HDL CHOLESTEROL 45 mg/dL (>55); HEMATOCRIT. 46.9 % (42.0-52.0); HEMOGLOBIN. 15.6 g/dL (14.0-18.0); LYMPHOCYTES % 34.9 % (20.0-50.0); MEAN CORPUSCULAR HEMOGLOBIN 30.7 pg (28.0-32.0); MEAN CORPUSCULAR HGB CONC 33.3 g/dL (31.0-37.0); MEAN CORPUSCULAR VOLUME 92.4 fL (80.0-94.0); MEAN PLATELET VOLUME 8.1 fl (7.4-10.4); MONOCYTES % 4.9 % (2.0-8.0); NEUTROPHILS % 53.6 % (40.0-76.0); PLATELET 172 x1000/uL (130-400); RED BLOOD CELL COUNT 5.07 mill/uL (4.7-6.1); RED CELL DISTRIBUTION WIDTH 15.1 % (11.6-14.6); WHITE BLOOD COUNT 6.7 x1000/uL (4.5-11.0)
[2024-05-20 08:00] VITALS: BP 102/35; PULSE 59; RESP 18; TEMP 36.83628; O2SAT 95
[2024-05-20] MEDS: ASPIRIN 81MG TABLET PO SCH (09:16)
[2024-05-20] MEDS: FUROSEMIDE 40MG TABLET PO SCH (09:16)
[2024-05-20] MEDS: AMIODARONE 200MG TABLET PO SCH (09:25)
[2024-05-20] MEDS: ACETAMINOPHEN 325MG TABLET PO PRN (09:28)
[2024-05-20 12:00] VITALS: BP 108/44; PULSE 68; RESP 19; TEMP 37.503; O2SAT 96
[2024-05-20 16:00] VITALS: BP 111/52; PULSE 77; RESP 18; TEMP 36.78072; O2SAT 96
[2024-05-20 20:00] VITALS: BP 140/55; PULSE 74; RESP 18; TEMP 37.55856; O2SAT 99
[2024-05-21] VITALS: BP_SYST 115; BP_SYST 140; BP_DIAS 55; BP_DIAS 85; PULSE 74; RESP 18; TEMP 37.55856; O2SAT 99
[2024-05-21 04:00] VITALS: BP 128/54; PULSE 78; RESP 22; TEMP 36.6696; O2SAT 98
[2024-05-21 05:18] VITALS: BP 128/50; PULSE 70; RESP 17; TEMP 36.44736
[2024-05-21 08:00] VITALS: BP 118/65; PULSE 66; RESP 18; TEMP 36.83628; O2SAT 98
[2024-05-21] MEDS ORDERED: ENOXAPARIN 40MG/0.4ML SYR SUBCUT SCH (09:00)
[2024-05-21 12:00] VITALS: BP 118/60; PULSE 65; RESP 20; TEMP 37.16964; O2SAT 98
[2024-05-21 12:12] LABS: TROPONIN I HIGH SENSITIVITY 26 ng/L (3.0-53)
[2024-05-21] MEDS ORDERED: NALOXONE HCL 0.4MG/ML VIAL IV PRN (14:30)
[2024-05-21 16:00] VITALS: BP 109/67; PULSE 76; RESP 23; TEMP 36.9474; O2SAT 97
[2024-05-22] VITALS (7 sets, daily range): BP systolic 119–141; BP diastolic 45–78; PULSE 66–76; RESP 17–21; TEMP 36.16956–37.05852; O2SAT 98–100
[2024-05-22 07:50] LABS: INR 1.2; PROTHROMBIN TIME 12.7 sec (9.6-11.0)
[2024-05-22 07:55] LABS: BASOPHILS % 0.7 % (0.0-2.0); EOSINOPHILS % 4.3 % (0.0-5.0); HEMATOCRIT. 39.7 % (42.0-52.0); HEMOGLOBIN. 13.4 g/dL (14.0-18.0); LYMPHOCYTES % 26.2 % (20.0-50.0); MEAN CORPUSCULAR HEMOGLOBIN 31.4 pg (28.0-32.0); MEAN CORPUSCULAR HGB CONC 33.7 g/dL (31.0-37.0); MEAN CORPUSCULAR VOLUME 93.1 fL (80.0-94.0); MEAN PLATELET VOLUME 8.2 fl (7.4-10.4); MONOCYTES % 6.4 % (2.0-8.0); NEUTROPHILS % 62.4 % (40.0-76.0); PLATELET 163 x1000/uL (130-400); RED BLOOD CELL COUNT 4.26 mill/uL (4.7-6.1); RED CELL DISTRIBUTION WIDTH 15.4 % (11.6-14.6); WHITE BLOOD COUNT 6.6 x1000/uL (4.5-11.0)
[2024-05-22 08:05] LABS: CARBON DIOXIDE 23 mEq/L (21-32); CHLORIDE 104 mEq/L (98-107); POTASSIUM 3.2 mEq/L (3.5-5.1); SODIUM 137 mEq/L (136-145)
[2024-05-22 08:10] LABS: CREATININE 0.9 mg/dL (0.6-1.3); GLUCOSE 76 mg/dL (70-105)
[2024-05-22 08:11] LABS: PROTEIN TOTAL 6.1 g/dL (6.0-8.3); TRIGLYCERIDE 63 mg/dL (0-150); UREA NITROGEN BLOOD 24 mg/dL (9-23)
[2024-05-22 08:12] LABS: ALANINE AMINOTRANSFERASE 10 IU/L (10-49); ALBUMIN 3.6 g/dL (3.2-4.8); ASPARTATE AMINOTRANSFERASE 17 IU/L (<34); CHOLESTEROL 96 mg/dL (<200); LDL CHOLESTEROL 37 mg/dL (5-100)
[2024-05-22 08:13] LABS: BILIRUBIN DIRECT 0.4 mg/dL (<=3.0); BILIRUBIN TOTAL 1.1 mg/dL (0.1-1.0); HDL CHOLESTEROL 41 mg/dL (>55); PHOSPHORUS 3.1 mg/dL (2.5-4.9)
[2024-05-22] MEDS: CLOPIDOGREL 75MG TABLET PO SCH (11:29)
[2024-05-22] MEDS: POTASSIUM CHLORIDE 20MEQ TABLET SR PO SCH (11:29)
[2024-05-23] VITALS (8 sets, daily range): BP systolic 107–132; BP diastolic 38–78; PULSE 68–78; RESP 16–27; TEMP 36.28068–36.9474; O2SAT 74–98
[2024-05-23] MEDS ORDERED: DIPHENHYDRAMINE 50MG/ML VIAL ONE (12:08)
[2024-05-23] MEDS ORDERED: HEPARIN 1000 UNITS/ML 10ML ONE (12:08)
[2024-05-23] MEDS ORDERED: FENTANYL CITRATE/PF 50MCG/ML 2ML VIAL ONE (12:08)
[2024-05-23] MEDS ORDERED: VERAPAMIL HCL 2.5 MG/1 ML 2ML VIAL IV ONE (12:08)
[2024-05-23] MEDS ORDERED: MIDAZOLAM HCL 2 MG/2 ML VIAL ONE (12:08)
[2024-05-23] MEDS ORDERED: IODIXANOL 320MG/ML 100 ML BOTTLE IV ONE (12:09)
[2024-05-23] MEDS ORDERED: LIDOCAINE HCL/PF 2% 20MG/ML 5 ML/VIAL ONE (12:09)
[2024-05-23] MEDS ORDERED: ATROPINE SULFATE 1MG/10ML SYR IV PRN (13:45)
[2024-05-23] MEDS ORDERED: ACETAMINOPHEN 325MG TABLET PO PRN (13:45)
[2024-05-23] MEDS ORDERED: LIP40 MT (16:29)
[2024-05-23] MEDS ORDERED: APIX5TAB MT (16:29)
[2024-05-23] MEDS ORDERED: FURO20TA4 PO (20:41)
[2024-05-23] MEDS ORDERED: NITR0.4T49 SL (20:41)
[2024-05-23] MEDS ORDERED: MAG-151 PO (20:41)
[2024-05-23] MEDS ORDERED: DOCU-138 PO (20:41)
[2024-05-23] MEDS ORDERED: ACET325T52 PO (20:41)
[2024-05-23] MEDS ORDERED: CLON0.1T PO (20:43)
[2024-05-23] MEDS: ZOLPIDEM TARTRATE 5MG TABLET PO PRN (21:14)
[2024-05-24] VITALS: BP 135/58; PULSE 78; RESP 21; TEMP 37.11408; O2SAT 95
[2024-05-24 04:00] VITALS: PULSE 71; RESP 14; TEMP 37.66968; O2SAT 97
[2024-05-24 05:24] VITALS: BP 107/61; PULSE 75; RESP 21
[2024-05-24 06:14] LABS: CHLORIDE 105 mEq/L (98-107); POTASSIUM 3.3 mEq/L (3.5-5.1); SODIUM 137 mEq/L (136-145)
[2024-05-24 06:15] LABS: CARBON DIOXIDE 26 mEq/L (21-32)
[2024-05-24 06:16] LABS: CALCIUM 8.8 mg/dL (8.7-10.4)
[2024-05-24 06:20] LABS: CREATININE 0.8 mg/dL (0.6-1.3); GLUCOSE 99 mg/dL (70-105); INR 1.1; PROTHROMBIN TIME 12.1 sec (9.6-11.0); UREA NITROGEN BLOOD 22 mg/dL (9-23)
[2024-05-24 06:37] LABS: BASOPHILS % 0.6 % (0.0-2.0); EOSINOPHILS % 5.3 % (0.0-5.0); HEMATOCRIT. 36.9 % (42.0-52.0); HEMOGLOBIN. 12.4 g/dL (14.0-18.0); LYMPHOCYTES % 19.9 % (20.0-50.0); MEAN CORPUSCULAR HEMOGLOBIN 30.9 pg (28.0-32.0); MEAN CORPUSCULAR HGB CONC 33.5 g/dL (31.0-37.0); MEAN CORPUSCULAR VOLUME 92.4 fL (80.0-94.0); MEAN PLATELET VOLUME 8.4 fl (7.4-10.4); MONOCYTES % 7.8 % (2.0-8.0); NEUTROPHILS % 66.4 % (40.0-76.0); PLATELET 157 x1000/uL (130-400); RED CELL DISTRIBUTION WIDTH 15.4 % (11.6-14.6); WHITE BLOOD COUNT 5.3 x1000/uL (4.5-11.0)
[2024-05-24 08:00] VITALS: BP 101/55; PULSE 68; RESP 16; TEMP 36.89184; O2SAT 95
[2024-05-24 12:00] VITALS: BP 118/71; PULSE 68; RESP 15; TEMP 36.83628; O2SAT 95
[2024-05-24 13:39] VITALS: BP 118/71; PULSE 68; TEMP 98.3; O2SAT 95
[2024-05-24] MEDS ORDERED: APIXABAN 5 MG TABLET PO SCH (21:00)
== END 2024-05-24 15:23 | disposition home or self-care (01) | DRG 286 ==
LOC: ER 10:15 → 5WST 14:03 → EDBEDREQ 14:06 → 3WST 17:54
PROVIDERS: ADMIT Internal Medicine; ATTEND Internal Medicine
PROC: 4A023N7 Measurement of Cardiac Sampling and Pressure, Left Heart, Percutaneous Approach (ICD-10-PCS; principal; 2024-05-23)
PROC: B211YZZ Fluoroscopy of Multiple Coronary Arteries using Other Contrast (ICD-10-PCS; 2024-05-23)
DX: I25.110 Atherosclerotic heart disease of native coronary artery with unstable angina pectoris (principal); I50.33 Acute on chronic diastolic (congestive) heart failure; I48.20 Chronic atrial fibrillation, unspecified; I11.0 Hypertensive heart disease with heart failure; F02.80 Dementia in other diseases classified elsewhere, unspecified severity, without behavioral disturbance, psychotic disturbance, mood disturbance, and anxiety; G30.9 Alzheimer's disease, unspecified; E78.00 Pure hypercholesterolemia, unspecified; F17.210 Nicotine dependence, cigarettes, uncomplicated; I25.2 Old myocardial infarction; Z79.01 Long term (current) use of anticoagulants; Z82.49 Family history of ischemic heart disease and other diseases of the circulatory system; Z83.3 Family history of diabetes mellitus; Z91.199 Patient's noncompliance with other medical treatment and regimen due to unspecified reason
CPT/HCPCS: 36415; 71045; 80048; 80061; 80076; 82962; 83036; 83735; 83880; 84100; 84484; 85025; 85379; 87426; 87804; 93005; 93458; 99285; C1769; C1887; C1893; J0360; J1200; J1644; J2250; J3010; J3490; Q9967

== ENCOUNTER 2024-12-04 12:41 | Emergency (ER) | payer MEDICARE, MEDICAID ==
[~2024-12-04] VITALS: Ht 172.7 cm; Wt 68.0 kg
[~2024-12-04 12:41] MED LIST changes: +ACET-3800 PO; +AMI2 PO; +APIX5TAB MT; +CLOP-31 PO; +DOCU-138 PO; +FAMO-135 MT; +FERR-71 PO; -FURO-151 MT; +LIP40 MT; +MAG-151 PO; -METO25TA6 MT; +NITR0.4T49 SL
[2024-12-04 12:42] VITALS: O2SAT 99
[2024-12-04 13:28] LABS: EOSINOPHILS % 10.4 % (0.0-5.0); HEMATOCRIT. 39.6 % (42.0-52.0); HEMOGLOBIN. 11.9 g/dL (14.0-18.0); LYMPHOCYTES % 32.1 % (20.0-50.0); MEAN CORPUSCULAR HEMOGLOBIN 22.8 pg (28.0-32.0); MEAN CORPUSCULAR HGB CONC 30.1 g/dL (31.0-37.0); MEAN CORPUSCULAR VOLUME 75.7 fL (80.0-94.0); MEAN PLATELET VOLUME 8.1 fl (7.4-10.4); MONOCYTES % 6.8 % (2.0-8.0); NEUTROPHILS % 49.7 % (40.0-76.0); PLATELET 248 x1000/uL (130-400); RED BLOOD CELL COUNT 5.22 mill/uL (4.7-6.1); RED CELL DISTRIBUTION WIDTH 25.5 % (11.6-14.6); WHITE BLOOD COUNT 6.1 x1000/uL (4.5-11.0)
[2024-12-04 13:39] LABS: INR 1.2; PROTHROMBIN TIME 12.5 sec (9.6-11.0)
[2024-12-04 13:51] LABS: DIFFERENTIAL COMMENT 1
[2024-12-04] MEDS: ACETAMINOPHEN WITH CODEINE 300/30MG TABLET PO STA (13:52)
[2024-12-04 13:53] LABS: ADD RBC MORPHOLOGY YES
[2024-12-04 14:00] LABS: CHLORIDE 106 mEq/L (98-107); POTASSIUM 3.9 mEq/L (3.5-5.1); SODIUM 138 mEq/L (136-145)
[2024-12-04 14:01] LABS: CALCIUM 9.7 mg/dL (8.7-10.4); CARBON DIOXIDE 24 mEq/L (21-32)
[2024-12-04 14:06] LABS: CREATININE 0.7 mg/dL (0.6-1.3); GLUCOSE 95 mg/dL (70-105); TROPONIN I HIGH SENSITIVITY 16 ng/L (3.0-53); UREA NITROGEN BLOOD 13 mg/dL (9-23)
[2024-12-04 14:11] LABS: CLARITY URINE CLEAR (CLEAR); COLOR URINE DARK YELLOW (YELLOW); GLUCOSE URINE NEGATIVE (NEGATIVE); KETONES URINE TRACE (NEGATIVE); LEUKOCYTE ESTERASE URINE NEGATIVE (NEGATIVE); NITRITE URINE NEGATIVE (NEGATIVE); OCCULT BLOOD URINE NEGATIVE (NEGATIVE); PH URINE 6.5 (4.5-8.0); PROTEIN URINE NEGATIVE (NEGATIVE); SPECIFIC GRAVITY URINE 1.019 (1.005-1.030)
[2024-12-04 14:25] LABS: ANISOCYTOSIS 3+; MICROCYTOSIS 2+
[2024-12-04 14:26] LABS: PLATELET ESTIMATE NORMAL
[2024-12-04 17:03] VITALS: BP 133/64; PULSE 65; RESP 15; TEMP 36.4; O2SAT 96
== END 2024-12-04 17:10 ==
LOC: ER 12:41
DX: R07.89 Other chest pain (principal); E78.00 Pure hypercholesterolemia, unspecified; F03.90 Unspecified dementia, unspecified severity, without behavioral disturbance, psychotic disturbance, mood disturbance, and anxiety; I11.0 Hypertensive heart disease with heart failure; I50.9 Heart failure, unspecified; I48.91 Unspecified atrial fibrillation; Z79.01 Long term (current) use of anticoagulants; Z79.02 Long term (current) use of antithrombotics/antiplatelets; Z79.82 Long term (current) use of aspirin; Z79.899 Other long term (current) drug therapy
CPT/HCPCS: 36415; 71045; 80048; 81003; 84484; 85025; 93005; 99285; A4606

== ENCOUNTER 2024-12-21 05:39 | Inpatient (IN) | payer MEDICARE, MEDICAID ==
[~2024-12-21] VITALS: Ht 160 cm; Wt 69.2 kg
[2024-12-21] VITALS (7 sets, daily range): BP systolic 143–156; BP diastolic 63–71; PULSE 60–92; RESP 16–20; TEMP 36.2–36.6; O2SAT 96–99
[~2024-12-21 05:39] MED LIST changes: -AMI2 MT; -APIX5TAB PO; -CLOP-31 PO; -LIP40 PO
[2024-12-21 07:03] LABS: BASOPHILS % 0.7 % (0.0-2.0); EOSINOPHILS % 14.8 % (0.0-5.0); HEMATOCRIT. 37.6 % (42.0-52.0); HEMOGLOBIN. 11.7 g/dL (14.0-18.0); LYMPHOCYTES % 32.2 % (20.0-50.0); MEAN CORPUSCULAR HEMOGLOBIN 23.5 pg (28.0-32.0); MEAN CORPUSCULAR VOLUME 75.7 fL (80.0-94.0); MEAN PLATELET VOLUME 8.1 fl (7.4-10.4); MONOCYTES % 5.2 % (2.0-8.0); NEUTROPHILS % 47.1 % (40.0-76.0); PLATELET 233 x1000/uL (130-400); RED BLOOD CELL COUNT 4.97 mill/uL (4.7-6.1); RED CELL DISTRIBUTION WIDTH 25.5 % (11.6-14.6); WHITE BLOOD COUNT 6.3 x1000/uL (4.5-11.0)
[2024-12-21 07:18] LABS: CHLORIDE 105 mEq/L (98-107); POTASSIUM 3.9 mEq/L (3.5-5.1); SODIUM 138 mEq/L (136-145)
[2024-12-21 07:19] LABS: CARBON DIOXIDE 23 mEq/L (21-32)
[2024-12-21 07:20] LABS: CALCIUM 9.1 mg/dL (8.7-10.4)
[2024-12-21 07:22] LABS: ADD RBC MORPHOLOGY YES; DIFFERENTIAL COMMENT 1
[2024-12-21 07:24] LABS: CREATININE 0.6 mg/dL (0.6-1.3); GLUCOSE 88 mg/dL (70-105); UREA NITROGEN BLOOD 11 mg/dL (9-23)
[2024-12-21 07:25] LABS: TROPONIN I HIGH SENSITIVITY 19 ng/L (3.0-53)
[2024-12-21] MEDS ORDERED: IPRATROPIUM/ALBUTEROL 0.5-3(2.5)MG/3ML NEB HHN PRN (07:45)
[2024-12-21] MEDS ORDERED: DOCUSATE SODIUM 100MG CAPSULE PO PRN (07:45)
[2024-12-21] MEDS ORDERED: GUAIFENESIN 200MG/10ML SUGAR FREE UDC PO PRN (07:45)
[2024-12-21] MEDS ORDERED: NITROGLYCERIN 0.4MG TABLET SL SL PRN ×2 (07:45→08:00)
[2024-12-21] MEDS ORDERED: ONDANSETRON HCL 4MG/2ML INJ IV PRN (07:45)
[2024-12-21] MEDS ORDERED: ACETAMINOPHEN 325MG TABLET PO PRN (07:45)
[2024-12-21] MEDS ORDERED: MAGNESIUM/ALUMINUM HYDROXIDE/SIMETHICONE 30ML UDC PO PRN (07:45)
[2024-12-21 08:33] LABS: ANISOCYTOSIS 2+; MICROCYTOSIS 1+; PLATELET ESTIMATE NORMAL
[2024-12-21] MEDS: FOLIC ACID 1MG TABLET PO SCH (08:50)
[2024-12-21] MEDS: ASPIRIN 81MG TABLET PO SCH (08:50)
[2024-12-21] MEDS: DOCUSATE SODIUM 100MG CAPSULE PO SCH (08:50)
[2024-12-21] MEDS: CLOPIDOGREL 75MG TABLET PO SCH (08:51)
[2024-12-21] MEDS: METOPROLOL TARTRATE 25MG TABLET PO SCH (08:51)
[2024-12-21] MEDS: AMIODARONE 200MG TABLET PO SCH (08:51)
[2024-12-21] MEDS: FAMOTIDINE 20MG TABLET PO SCH (08:52)
[2024-12-21] MEDS: ACETAMINOPHEN 325MG TABLET PO PRN (08:52)
[2024-12-21] MEDS ORDERED: ENOXAPARIN 80MG/0.8ML SYR SUBCUT SCH (09:15)
[2024-12-21 09:19] LABS: TROPONIN I HIGH SENSITIVITY 10 ng/L (3.0-53)
[2024-12-21] MEDS: ATORVASTATIN CALCIUM 40MG TABLET PO SCH (09:34)
[2024-12-21] MEDS: FERROUS SULFATE 325MG TABLET PO SCH (09:34)
[2024-12-21 09:58] LABS: INR 1.1; PROTHROMBIN TIME 11.5 sec (9.6-11.0)
[2024-12-21 10:23] LABS: T4 FREE 1.39 ng/dL (0.89-1.76); THYROID STIMULATING HORMONE 0.35 uIU/mL (0.55-4.78)
[2024-12-21] MEDS: IPRATROPIUM/ALBUTEROL 0.5-3(2.5)MG/3ML NEB HHN SCH (10:36)
[2024-12-21] MEDS: APIXABAN 5 MG TABLET PO SCH (13:22)
[2024-12-21 14:20] LABS: IRON 26 ug/dL (65-175)
[2024-12-21 14:23] LABS: TOTAL IRON BINDING CAPACITY 324 ug/dl (250-425)
[2024-12-21 17:07] LABS: CREATINE KINASE MB FRACTION 1.3 ng/mL (0.5-3.6)
[2024-12-22] VITALS (8 sets, daily range): BP systolic 121–146; BP diastolic 56–69; PULSE 55–87; RESP 18–20; TEMP 36.4–36.9; O2SAT 96–99
[2024-12-22 00:30] LABS: CREATINE KINASE MB FRACTION 1.2 ng/mL (0.5-3.6)
[2024-12-22 07:38] LABS: CREATINE KINASE MB FRACTION 1.1 ng/mL (0.5-3.6)
[2024-12-23] VITALS (7 sets, daily range): BP systolic 114–139; BP diastolic 52–80; PULSE 57–98; RESP 18–20; TEMP 36.4–36.7; O2SAT 95–100
[2024-12-23] MEDS ORDERED: FERR-63 PO (18:53)
[2024-12-23] MEDS ORDERED: FOLI-43 PO (18:53)
[2024-12-24] VITALS: BP 111/78; PULSE 88; RESP 20; TEMP 36.9; O2SAT 99
[2024-12-24 04:01] VITALS: BP 129/53; PULSE 89; RESP 20; TEMP 37.1; O2SAT 100
[2024-12-24 08:18] VITALS: BP 142/66; PULSE 56; RESP 18; TEMP 36.6; O2SAT 95
[2024-12-24 12:35] VITALS: BP 146/66; PULSE 52; RESP 20; TEMP 36.5; O2SAT 100
[2024-12-24 12:45] VITALS: BP 122/79; PULSE 75; TEMP 98; O2SAT 96
== END 2024-12-24 14:55 | disposition home or self-care (01) | DRG 392 ==
LOC: ER 05:39 → EDBEDREQ 06:04 → 8WST 06:19 → EDBEDREQ 06:28 → MICUSO 10:39 → 7WST 11:40
PROVIDERS: ADMIT Internal Medicine; ATTEND Internal Medicine
DX: K21.9 Gastro-esophageal reflux disease without esophagitis (principal); I24.9 Acute ischemic heart disease, unspecified; F03.90 Unspecified dementia, unspecified severity, without behavioral disturbance, psychotic disturbance, mood disturbance, and anxiety; D64.9 Anemia, unspecified; I11.0 Hypertensive heart disease with heart failure; I50.9 Heart failure, unspecified; I25.10 Atherosclerotic heart disease of native coronary artery without angina pectoris; F17.210 Nicotine dependence, cigarettes, uncomplicated; I48.91 Unspecified atrial fibrillation; E78.00 Pure hypercholesterolemia, unspecified; Z98.61 Coronary angioplasty status; Z79.02 Long term (current) use of antithrombotics/antiplatelets; Z82.49 Family history of ischemic heart disease and other diseases of the circulatory system; Z83.3 Family history of diabetes mellitus; Z79.899 Other long term (current) drug therapy
CPT/HCPCS: 36415; 71045; 80048; 80061; 82550; 82553; 82728; 83540; 83550; 83880; 84439; 84443; 84484; 85025; 93005; 93306; 93970; 94070; 94640; 97162; 97166; 99285; A4606; J1650

== ENCOUNTER 2025-01-26 21:49 | Inpatient (IN) | payer MEDICARE, MEDICAID ==
[~2025-01-26] VITALS: Ht 167.6 cm; Wt 74.8 kg
[~2025-01-26 21:49] MED LIST changes: +FOLI-43 PO
[2025-01-26] MEDS: NITROGLYCERIN 0.1MG/HR PATCH TOP ONE (22:45)
[2025-01-26] MEDS: ONDANSETRON HCL 4MG/2ML INJ IV ONE (22:45)
[2025-01-26 22:47] LABS: BASOPHILS % 0.7 % (0.0-2.0); DIFFERENTIAL COMMENT 0; EOSINOPHILS % 8.8 % (0.0-5.0); HEMOGLOBIN. 11.3 g/dL (14.0-18.0); LYMPHOCYTES % 38.4 % (20.0-50.0); MEAN CORPUSCULAR HEMOGLOBIN 24.9 pg (28.0-32.0); MEAN CORPUSCULAR HGB CONC 32.1 g/dL (31.0-37.0); MEAN CORPUSCULAR VOLUME 77.4 fL (80.0-94.0); MEAN PLATELET VOLUME 7.9 fl (7.4-10.4); MONOCYTES % 7.9 % (2.0-8.0); NEUTROPHILS % 44.2 % (40.0-76.0); PLATELET 192 x1000/uL (130-400); RED BLOOD CELL COUNT 4.53 mill/uL (4.7-6.1); RED CELL DISTRIBUTION WIDTH 21.4 % (11.6-14.6); WHITE BLOOD COUNT 6.6 x1000/uL (4.5-11.0)
[2025-01-26 22:54] LABS: CHLORIDE 109 mEq/L (98-107); POTASSIUM 3.9 mEq/L (3.5-5.1); SODIUM 142 mEq/L (136-145)
[2025-01-26 22:55] LABS: CALCIUM 8.8 mg/dL (8.7-10.4); CARBON DIOXIDE 25 mEq/L (21-32)
[2025-01-26 23:00] LABS: CREATININE 0.7 mg/dL (0.6-1.3); GLUCOSE 96 mg/dL (70-105); UREA NITROGEN BLOOD 17 mg/dL (9-23)
[2025-01-26 23:01] LABS: ETHANOL BLOOD < 10 mg/dL (<10); TROPONIN I HIGH SENSITIVITY 17 ng/L (3.0-53)
[2025-01-26 23:02] LABS: INR 1.1; PROTHROMBIN TIME 11.7 sec (9.6-11.0)
[2025-01-26] MEDS: ACETAMINOPHEN 325MG TABLET PO ONE (23:28)
[2025-01-26] MEDS: MORPHINE SULFATE 4 MG/ML INJ (FOR IV/IM USE) IV ONE (23:32)
[2025-01-26] MEDS: SODIUM CHLORIDE 0.9% 1,000 ML IV ONE (23:33)
[2025-01-27] MEDS ORDERED: ZOLPIDEM TARTRATE 5MG TABLET PO PRN (00:30)
[2025-01-27] MEDS ORDERED: DIPHENHYDRAMINE 50MG/ML VIAL IV PRN (00:30)
[2025-01-27] MEDS ORDERED: CLONIDINE 0.1MG TABLET PO PRN (00:30)
[2025-01-27] MEDS ORDERED: MAGNESIUM/ALUMINUM HYDROXIDE/SIMETHICONE 30ML UDC PO PRN (00:30)
[2025-01-27] MEDS ORDERED: ACETAMINOPHEN 325MG TABLET PO PRN ×2 (00:30)
[2025-01-27] MEDS ORDERED: ONDANSETRON HCL 4MG/2ML INJ IV PRN (00:30)
[2025-01-27 00:50] LABS: *AMPHETAMINES SCREEN URINE NEGATIVE (NEGATIVE); *BARBITURATES SCREEN URINE NEGATIVE (NEGATIVE); *BENZODIAZEPINES SCREEN URINE NEGATIVE (NEGATIVE); *COCAINE SCREEN URINE NEGATIVE (NEGATIVE); CANNABINOID URINE SCREEN NEGATIVE (NEGATIVE); ECSTASY MDMA SCREEN URINE NEGATIVE (NEGATIVE); METHADONE URINE SCREEN NEGATIVE (NEGATIVE); OPIATES URINE SCREEN NEGATIVE (NEGATIVE); PHENCYCLIDINE URINE SCREEN NEGATIVE (NEGATIVE)
[2025-01-27 02:45] VITALS: BP 125/76; PULSE 92; RESP 18; TEMP 36.9; TEMP 37; O2SAT 99
[2025-01-27 04:00] VITALS: BP 132/96; PULSE 110; RESP 17; TEMP 36.4; O2SAT 97
[2025-01-27] MEDS: SODIUM CHLORIDE 0.9% 3ML FLUSH IVF SCH (06:30)
[2025-01-27] MEDS: PANTOPRAZOLE 40MG DR TABLET PO SCH (06:30)
[2025-01-27] MEDS: DILTIAZEM HCL 30MG TABLET PO SCH (06:30)
[2025-01-27 08:00] VITALS: BP 146/84; PULSE 77; RESP 20; TEMP 36.1; O2SAT 98
[2025-01-27] MEDS: APIXABAN 5 MG TABLET PO SCH (09:40)
[2025-01-27] MEDS: CLOPIDOGREL 75MG TABLET PO SCH (09:40)
[2025-01-27] MEDS: ASPIRIN 81MG TABLET PO SCH (09:40)
[2025-01-27 12:00] VITALS: BP 143/77; PULSE 75; RESP 20; TEMP 36.2; O2SAT 98
[2025-01-27 16:00] VITALS: BP 143/56; PULSE 78; RESP 20; TEMP 36.1; O2SAT 100
[2025-01-27 20:00] VITALS: BP 137/75; PULSE 79; RESP 18; TEMP 36.4; O2SAT 97
[2025-01-27] MEDS: ATORVASTATIN CALCIUM 40MG TABLET PO SCH (21:29)
[2025-01-28] VITALS: BP 126/53; PULSE 80; RESP 18; TEMP 36.8; O2SAT 98
[2025-01-28] MEDS: ZOLPIDEM TARTRATE 5MG TABLET PO PRN (02:08)
[2025-01-28] MEDS: KETOROLAC 30MG/ML VIAL IV PRN (02:08)
[2025-01-28 08:00] VITALS: BP 148/91; PULSE 76; RESP 18; TEMP 36.4; O2SAT 95
[2025-01-28 12:00] VITALS: BP 135/93; PULSE 108; RESP 18; TEMP 36.7; O2SAT 98
[2025-01-28 15:22] VITALS: BP 139/92; PULSE 95; TEMP 98; O2SAT 98
== END 2025-01-28 15:43 | disposition home or self-care (01) | DRG 291 ==
LOC: ER 21:49 → 5WST 23:56 → EDBEDREQTM 01-27 00:01 → EDBEDREQDT 01-27 00:01 → EDBEDREQ 01-27 00:01 → ENRESERV 01-27 01:16
PROVIDERS: ADMIT Internal Medicine; ATTEND Internal Medicine
DX: I11.0 Hypertensive heart disease with heart failure (principal); I50.33 Acute on chronic diastolic (congestive) heart failure; I48.91 Unspecified atrial fibrillation; I25.10 Atherosclerotic heart disease of native coronary artery without angina pectoris; K21.9 Gastro-esophageal reflux disease without esophagitis; E78.00 Pure hypercholesterolemia, unspecified; F03.90 Unspecified dementia, unspecified severity, without behavioral disturbance, psychotic disturbance, mood disturbance, and anxiety; F17.210 Nicotine dependence, cigarettes, uncomplicated; Z95.5 Presence of coronary angioplasty implant and graft; Z91.148 Patient's other noncompliance with medication regimen for other reason; Z82.49 Family history of ischemic heart disease and other diseases of the circulatory system; Z83.3 Family history of diabetes mellitus
CPT/HCPCS: 36415; 71045; 80048; 80305; 80320; 83880; 84484; 85025; 93005; 96374; 96375; 99285; J1885; J2270; J2405; J7030; G0480

== ENCOUNTER 2025-03-10 22:02 | Inpatient (IN) | payer MEDICARE, MEDICAID ==
[~2025-03-10] VITALS: Ht 177.8 cm; Wt 73.2 kg
[~2025-03-10 22:02] MED LIST changes: +ALLO100T PO; -AMI2 PO; -ASPI-1160 PO; +CLAR10 PO; +DILT30TA3 PO; +LEVO75TA7 PO; +LISI-186 PO; -METO25TA6 PO; +P20 PO; +RDML10 PO
[2025-03-10 23:09] LABS: BASOPHILS % 0.6 % (0.0-2.0); EOSINOPHILS % 5.6 % (0.0-5.0); HEMATOCRIT. 36.4 % (42.0-52.0); HEMOGLOBIN. 11.5 g/dL (14.0-18.0); LYMPHOCYTES % 28.9 % (20.0-50.0); MEAN PLATELET VOLUME 8.4 fl (7.4-10.4); MONOCYTES % 6.9 % (2.0-8.0); NEUTROPHILS % 58.0 % (40.0-76.0); PLATELET 223 x1000/uL (130-400); RED BLOOD CELL COUNT 4.71 mill/uL (4.7-6.1); RED CELL DISTRIBUTION WIDTH 19.2 % (11.6-14.6)
[2025-03-10 23:10] LABS: INR 1.1
[2025-03-10 23:15] LABS: CREATININE 0.8 mg/dL (0.6-1.3); UREA NITROGEN BLOOD 20 mg/dL (9-23)
[2025-03-10 23:16] LABS: TROPONIN I HIGH SENSITIVITY 30 ng/L (3.0-53)
[2025-03-11] MEDS: ASPIRIN 325MG TABLET PO ONE (00:03)
[2025-03-11] MEDS: METOPROLOL TARTRATE 5MG/5ML VIAL IV PRN (00:12)
[2025-03-11 01:05] LABS: TROPONIN I HIGH SENSITIVITY 49 ng/L (3.0-53)
[2025-03-11 02:28] LABS: TROPONIN I HIGH SENSITIVITY 56 ng/L (3.0-53)
[2025-03-11] MEDS ORDERED: MULT-1279 PO (03:58)
[2025-03-11] MEDS ORDERED: ASPI-1160 PO (03:58)
[2025-03-11] MEDS ORDERED: HYDR50TA39 PO (03:58)
[2025-03-11] MEDS ORDERED: PANT40TA51 PO (04:00)
[2025-03-11] MEDS ORDERED: AMLO10TA80 PO (04:00)
[2025-03-11] MEDS ORDERED: NITROGLYCERIN 0.4MG TABLET SL SL PRN (07:00)
[2025-03-11 08:00] VITALS: BP 143/74; PULSE 102; RESP 18; TEMP 36.4; O2SAT 99
[2025-03-11] MEDS ORDERED: DOCUSATE SODIUM 100MG CAPSULE PO PRN (09:00)
[2025-03-11] MEDS ORDERED: HYDRALAZINE HCL 50MG TABLET PO SCH (09:00)
[2025-03-11] MEDS: AMLODIPINE 10MG TABLET PO SCH (09:36)
[2025-03-11] MEDS: ASPIRIN 81MG TABLET PO SCH (09:36)
[2025-03-11] MEDS: METOPROLOL TARTRATE 25MG TABLET PO NR (09:36)
[2025-03-11] MEDS: PANTOPRAZOLE 40MG DR TABLET PO SCH (09:36)
[2025-03-11] MEDS: APIXABAN 5 MG TABLET PO SCH (09:37)
[2025-03-11] MEDS: ALLOPURINOL 100 MG TABLET PO SCH (09:37)
[2025-03-11 12:00] VITALS: BP 145/74; PULSE 95; RESP 18; TEMP 36.8; O2SAT 95
[2025-03-11 13:31] LABS: PLATELET 218 x1000/uL (130-400); RED BLOOD CELL COUNT 4.83 mill/uL (4.7-6.1); RED CELL DISTRIBUTION WIDTH 19.1 % (11.6-14.6)
[2025-03-11 14:08] LABS: TRIGLYCERIDE 72.0 mg/dL (0-150)
[2025-03-11 14:09] LABS: CREATININE 0.7 mg/dL (0.6-1.3); LDL CHOLESTEROL 61.0 mg/dL (5-100); UREA NITROGEN BLOOD 17 mg/dL (9-23)
[2025-03-11 14:26] LABS: TROPONIN I HIGH SENSITIVITY 78.0 ng/L (3.0-53)
[2025-03-11 14:48] LABS: HEPATITIS C AB NON REACTIVE (Neg) (Negative)
[2025-03-11 16:00] VITALS: BP 157/79; PULSE 87; RESP 18; TEMP 36.5; O2SAT 95
[2025-03-11] MEDS: DIGOXIN 125MCG TABLET PO SCH (17:02)
[2025-03-11] MEDS: ACETAMINOPHEN 325MG TABLET PO PRN (17:02)
[2025-03-11 20:00] VITALS: BP 102/57; PULSE 103; RESP 18; TEMP 36.6; O2SAT 97
[2025-03-11] MEDS: ATORVASTATIN CALCIUM 40MG TABLET PO SCH (21:38)
[2025-03-11] MEDS: METOPROLOL TARTRATE 25MG TABLET PO SCH (21:41)
[2025-03-12] VITALS: BP_SYST 137; BP_SYST 167; BP_DIAS 72; BP_DIAS 87; PULSE 71; RESP 18; TEMP 36.5; O2SAT 96
[2025-03-12 04:00] VITALS: BP 121/87; PULSE 91; RESP 18; TEMP 36.5; O2SAT 96
[2025-03-12] MEDS: LEVOTHYROXINE SODIUM 75MCG TABLET PO SCH (06:45)
[2025-03-12 08:00] VITALS: BP 111/66; PULSE 83; RESP 17; TEMP 36.7; O2SAT 98
[2025-03-12] MEDS: HYDROCODONE/ACETAMINOPHEN 5/325MG TABLET PO PRN (09:47)
[2025-03-12 12:00] VITALS: BP 119/67; PULSE 83; RESP 20; TEMP 36.4; O2SAT 100
[2025-03-12] MEDS: FUROSEMIDE 40MG TABLET PO SCH (12:01)
[2025-03-12 16:00] VITALS: BP 122/80; PULSE 77; RESP 18; TEMP 36.5; O2SAT 100
[2025-03-12 20:00] VITALS: BP 118/60; PULSE 73; RESP 18; TEMP 36.5; O2SAT 94
[2025-03-12] MEDS ORDERED: IOHEXOL-350 100 ML BOTTLE ONE (23:26)
[2025-03-13] VITALS: BP 99/53; PULSE 80; RESP 18; TEMP 36.5; O2SAT 99
[2025-03-13 04:00] VITALS: BP 120/72; PULSE 64; RESP 18; TEMP 36.5; O2SAT 94
[2025-03-13 08:00] VITALS: BP 134/68; PULSE 80; RESP 17; TEMP 36.4; O2SAT 96
[2025-03-13 12:00] VITALS: BP 130/70; PULSE 70; RESP 17; TEMP 36.7; O2SAT 98
[2025-03-13] MEDS ORDERED: NALOXONE HCL 0.4MG/ML VIAL IV PRN ×2 (15:00)
[2025-03-13 18:33] VITALS: BP 130/67; PULSE 76; RESP 16; TEMP 36.4; O2SAT 99
[2025-03-13 20:00] VITALS: BP 118/73; PULSE 76; RESP 18; TEMP 36.5; O2SAT 97
[2025-03-14] VITALS: BP 135/78; PULSE 81; RESP 17; TEMP 36.7; O2SAT 97
[2025-03-14 04:00] VITALS: BP 119/65; PULSE 78; RESP 16; TEMP 36.8; O2SAT 97
[2025-03-14 08:00] VITALS: BP 102/53; PULSE 83; RESP 18; TEMP 36.4; O2SAT 99
[2025-03-14] MEDS ORDERED: FURO40TA5 PO (10:11)
[2025-03-14] MEDS ORDERED: METO-539 MT (10:11)
[2025-03-14 12:00] VITALS: BP 112/67; PULSE 82; RESP 18; TEMP 36.2; O2SAT 97
[2025-03-14 13:11] VITALS: BP 112/67; PULSE 82; TEMP 97.1; O2SAT 98
== END 2025-03-14 14:51 | disposition home health service (06) | DRG 308 ==
LOC: ER 22:02 → 5WST 03-11 01:56 → EDBEDREQDT 03-11 02:30 → EDBEDREQSVC 03-11 02:30 → EDBEDREQ 03-11 02:30 → EDBEDREQTM 03-11 02:30 → ENRESERV 03-11 02:50 → 5WST 03-11 04:27
PROVIDERS: ADMIT Internal Medicine; ATTEND Internal Medicine
DX: I48.0 Paroxysmal atrial fibrillation (principal); I50.33 Acute on chronic diastolic (congestive) heart failure; I11.0 Hypertensive heart disease with heart failure; I25.10 Atherosclerotic heart disease of native coronary artery without angina pectoris; E78.00 Pure hypercholesterolemia, unspecified; D64.9 Anemia, unspecified; K21.9 Gastro-esophageal reflux disease without esophagitis; F17.200 Nicotine dependence, unspecified, uncomplicated; Z95.5 Presence of coronary angioplasty implant and graft; Z79.01 Long term (current) use of anticoagulants; Z82.49 Family history of ischemic heart disease and other diseases of the circulatory system; Z83.3 Family history of diabetes mellitus; I25.2 Old myocardial infarction
CPT/HCPCS: 36415; 71045; 71275; 80048; 80061; 83735; 83880; 84484; 85025; 85027; 85379; 86705; 87340; 99291; J3490; Q9967

== ENCOUNTER 2025-03-28 02:43 | Inpatient (IN) | payer MEDICARE, MEDICAID ==
[~2025-03-28] VITALS: Ht 172.7 cm; Wt 74.8 kg
[2025-03-28] VITALS (8 sets, daily range): BP systolic 123–148; BP diastolic 57–72; PULSE 50–68; RESP 16–20; TEMP 36.4736–37.2; O2SAT 97–99
[~2025-03-28 02:43] MED LIST changes: -ALLO100T PO; +ASPI-1160 PO; -CLAR10 PO; -CLOP-31 MT; -DILT30TA3 PO; -FAMO-135 MT; -FERR-71 PO; -FOLI-43 PO; +FURO40TA5 PO; -LEVO75TA7 PO; -LISI-186 PO; -MAG-151 PO; +METO-539 MT; +MULT-1279 PO; -P20 PO; +PANT40TA51 PO; -RDML10 PO
[2025-03-28] MEDS: ASPIRIN 325MG TABLET PO ONE (03:54)
[2025-03-28 04:05] LABS: BASOPHILS % 1.0 % (0.0-2.0); EOSINOPHILS % 11.7 % (0.0-5.0); HEMATOCRIT. 33.5 % (42.0-52.0); HEMOGLOBIN. 10.8 g/dL (14.0-18.0); LYMPHOCYTES % 30.6 % (20.0-50.0); MEAN PLATELET VOLUME 8.3 fl (7.4-10.4); MONOCYTES % 5.7 % (2.0-8.0); NEUTROPHILS % 51.0 % (40.0-76.0); PLATELET 234 x1000/uL (130-400); RED BLOOD CELL COUNT 4.30 mill/uL (4.7-6.1); RED CELL DISTRIBUTION WIDTH 19.0 % (11.6-14.6)
[2025-03-28 04:18] LABS: CREATININE 0.9 mg/dL (0.6-1.3); TROPONIN I HIGH SENSITIVITY 13 ng/L (3.0-53); UREA NITROGEN BLOOD 16 mg/dL (9-23)
[2025-03-28] MEDS ORDERED: ATOR40TA70 MT (08:11)
[2025-03-28] MEDS ORDERED: FURO40TA5 PO (08:27)
[2025-03-28] MEDS ORDERED: NITR0.4T49 SL ×2 (08:27→08:36)
[2025-03-28] MEDS ORDERED: MULT-1146 MT (08:36)
[2025-03-28] MEDS ORDERED: DOCU-422 PO (08:36)
[2025-03-28] MEDS ORDERED: ACET650S27 RC (08:36)
[2025-03-28] MEDS ORDERED: ASPI-1497 PO (08:36)
[2025-03-28] MEDS ORDERED: ONDANSETRON HCL 4MG/2ML INJ IV PRN (09:15)
[2025-03-28] MEDS ORDERED: DOCUSATE SODIUM 100MG CAPSULE PO PRN (09:15)
[2025-03-28] MEDS ORDERED: CLONIDINE 0.1MG TABLET PO PRN (09:15)
[2025-03-28] MEDS ORDERED: ACETAMINOPHEN 325MG TABLET PO PRN (09:15)
[2025-03-28] MEDS ORDERED: IPRATROPIUM/ALBUTEROL 0.5-3(2.5)MG/3ML NEB HHN PRN (09:15)
[2025-03-28] MEDS ORDERED: POTASSIUM CHLORIDE 20MEQ TABLET SR PO PRN (09:15)
[2025-03-28] MEDS ORDERED: HYDROCODONE/ACETAMINOPHEN 5/325MG TABLET PO PRN (09:15)
[2025-03-28] MEDS ORDERED: DEXTROSE 50% WATER 50ML SYRINGE IV PRN ×2 (09:15)
[2025-03-28] MEDS ORDERED: MAGNESIUM/ALUMINUM HYDROXIDE/SIMETHICONE 30ML UDC PO PRN (09:15)
[2025-03-28] MEDS ORDERED: ENOXAPARIN 40MG/0.4ML SYR SUBCUT SCH (09:30)
[2025-03-28 10:36] LABS: TROPONIN I HIGH SENSITIVITY 13 ng/L (3.0-53)
[2025-03-28] MEDS: BLOOD SUGAR DIAGNOSTIC STRIP TEST SCH (12:40)
[2025-03-28] MEDS: INSULIN LISPRO 100 UNITS/ML SUBCUT SCH (13:10)
[2025-03-28] MEDS ORDERED: NALOXONE HCL 0.4MG/ML VIAL IV PRN (13:15)
[2025-03-28] MEDS ORDERED: ENOXAPARIN 80MG/0.8ML SYR SUBCUT NR (13:15)
[2025-03-28 16:15] LABS: TROPONIN I HIGH SENSITIVITY 14 ng/L (3.0-53)
[2025-03-28 16:25] LABS: INR 1.1
[2025-03-28 19:37] LABS: CREATININE 0.8 mg/dL (0.6-1.3); UREA NITROGEN BLOOD 16 mg/dL (9-23)
[2025-03-28] MEDS: ASPIRIN 81MG TABLET PO SCH (20:27)
[2025-03-28] MEDS: ENOXAPARIN 80MG/0.8ML SYR SUBCUT SCH (20:27)
[2025-03-28] MEDS: FUROSEMIDE 40MG TABLET PO SCH (20:27)
[2025-03-28] MEDS: DIGOXIN 125MCG TABLET PO SCH (20:27)
[2025-03-28] MEDS: ATORVASTATIN CALCIUM 40MG TABLET PO SCH (21:18)
[2025-03-28 22:37] LABS: CLARITY URINE CLEAR (CLEAR); COLOR URINE YELLOW (YELLOW); GLUCOSE URINE NEGATIVE (NEGATIVE); KETONES URINE TRACE (NEGATIVE); LEUKOCYTE ESTERASE URINE NEGATIVE (NEGATIVE); NITRITE URINE NEGATIVE (NEGATIVE); OCCULT BLOOD URINE NEGATIVE (NEGATIVE); PH URINE 5.5 (4.5-8.0); PROTEIN URINE NEGATIVE (NEGATIVE); SPECIFIC GRAVITY URINE 1.018 (1.005-1.030); UROBILINOGEN URINE 1.0 E.U./dL (0.2-1.0)
[2025-03-28 23:09] LABS: *AMPHETAMINES SCREEN URINE NEGATIVE (NEGATIVE); *BARBITURATES SCREEN URINE NEGATIVE (NEGATIVE); *BENZODIAZEPINES SCREEN URINE NEGATIVE (NEGATIVE); *COCAINE SCREEN URINE NEGATIVE (NEGATIVE); CANNABINOID URINE SCREEN NEGATIVE (NEGATIVE); ECSTASY MDMA SCREEN URINE NEGATIVE (NEGATIVE); METHADONE URINE SCREEN NEGATIVE (NEGATIVE); OPIATES URINE SCREEN NEGATIVE (NEGATIVE); PHENCYCLIDINE URINE SCREEN NEGATIVE (NEGATIVE)
[2025-03-29] VITALS (7 sets, daily range): BP systolic 118–148; BP diastolic 57–80; PULSE 59–99; RESP 16–22; TEMP 36.2–37.2; O2SAT 95–100
[2025-03-29 09:54] LABS: BASOPHILS % 1.0 % (0.0-2.0); EOSINOPHILS % 12.7 % (0.0-5.0); HEMATOCRIT. 34.9 % (42.0-52.0); HEMOGLOBIN. 11.3 g/dL (14.0-18.0); LYMPHOCYTES % 30.3 % (20.0-50.0); MEAN PLATELET VOLUME 8.6 fl (7.4-10.4); MONOCYTES % 6.1 % (2.0-8.0); NEUTROPHILS % 49.9 % (40.0-76.0); PLATELET 221 x1000/uL (130-400); RED BLOOD CELL COUNT 4.47 mill/uL (4.7-6.1); RED CELL DISTRIBUTION WIDTH 19.6 % (11.6-14.6)
[2025-03-29 10:21] LABS: TROPONIN I HIGH SENSITIVITY 13 ng/L (3.0-53)
[2025-03-29 10:22] LABS: CREATININE 0.7 mg/dL (0.6-1.3); TRIGLYCERIDE 37 mg/dL (0-150); UREA NITROGEN BLOOD 15 mg/dL (9-23)
[2025-03-29 10:23] LABS: LDL CHOLESTEROL 36 mg/dL (5-100)
[2025-03-29 10:24] LABS: ASPARTATE AMINOTRANSFERASE 19 IU/L (<34); BILIRUBIN DIRECT 0.1 mg/dL (<=3.0); BILIRUBIN TOTAL 0.4 mg/dL (0.1-1.0); PHOSPHORUS 2.8 mg/dL (2.5-4.9); PROTEIN TOTAL 6.4 g/dL (6.0-8.3)
[2025-03-29 10:25] LABS: T4 FREE 1.58 ng/dL (0.89-1.76)
[2025-03-30] VITALS: BP 120/60; PULSE 65; RESP 18; TEMP 37.1; O2SAT 100
[2025-03-30 04:00] VITALS: BP 118/68; PULSE 66; RESP 19; TEMP 36.9; O2SAT 98
[2025-03-30 08:00] VITALS: BP 138/75; PULSE 62; RESP 19; TEMP 36.7; O2SAT 98
[2025-03-30 08:57] LABS: BASOPHILS % 1.2 % (0.0-2.0); EOSINOPHILS % 10.6 % (0.0-5.0); HEMATOCRIT. 37.5 % (42.0-52.0); HEMOGLOBIN. 12.0 g/dL (14.0-18.0); LYMPHOCYTES % 36.8 % (20.0-50.0); MEAN PLATELET VOLUME 8.7 fl (7.4-10.4); MONOCYTES % 6.7 % (2.0-8.0); NEUTROPHILS % 44.7 % (40.0-76.0); PLATELET 221 x1000/uL (130-400); RED BLOOD CELL COUNT 4.78 mill/uL (4.7-6.1); RED CELL DISTRIBUTION WIDTH 19.3 % (11.6-14.6)
[2025-03-30 09:22] LABS: CREATININE 0.8 mg/dL (0.6-1.3)
[2025-03-30 09:23] LABS: UREA NITROGEN BLOOD 21 mg/dL (9-23)
[2025-03-30 09:24] LABS: ASPARTATE AMINOTRANSFERASE 17 IU/L (<34)
[2025-03-30 09:25] LABS: BILIRUBIN DIRECT 0.2 mg/dL (<=3.0); BILIRUBIN TOTAL 0.4 mg/dL (0.1-1.0); PHOSPHORUS 3.3 mg/dL (2.5-4.9); PROTEIN TOTAL 7.2 g/dL (6.0-8.3)
[2025-03-30 12:00] VITALS: BP 123/76; PULSE 62; RESP 20; TEMP 36.7; O2SAT 98
[2025-03-30 16:00] VITALS: BP 122/55; PULSE 66; RESP 20; TEMP 36.5; O2SAT 99
[2025-03-30 20:00] VITALS: BP 115/67; PULSE 65; RESP 20; TEMP 36.4; O2SAT 100
[2025-03-31] VITALS: BP 133/68; PULSE 64; RESP 18; TEMP 36.3; O2SAT 99
[2025-03-31 04:00] VITALS: BP 114/68; PULSE 67; RESP 20; TEMP 36.4; O2SAT 100
[2025-03-31 08:00] VITALS: BP 125/61; PULSE 58; RESP 18; TEMP 36.8; O2SAT 95
[2025-03-31 12:00] VITALS: BP 128/75; PULSE 65; RESP 18; TEMP 36.4; O2SAT 97
[2025-03-31 16:00] VITALS: BP 115/68; PULSE 62; RESP 16; TEMP 36.7; O2SAT 99
[2025-03-31 16:11] VITALS: BP 124/75; PULSE 75; RESP 18; TEMP 98
== END 2025-03-31 18:42 | DRG 291 ==
LOC: ER 02:43 → 7WST 04:54 → EDBEDREQ 05:00 → EDBEDREQTM 05:00 → ENRESERV 05:17
PROVIDERS: ADMIT Family Medicine Adult Medicine; ATTEND Family Medicine Adult Medicine
DX: I11.0 Hypertensive heart disease with heart failure (principal); I50.33 Acute on chronic diastolic (congestive) heart failure; I25.10 Atherosclerotic heart disease of native coronary artery without angina pectoris; I48.0 Paroxysmal atrial fibrillation; E78.00 Pure hypercholesterolemia, unspecified; F03.90 Unspecified dementia, unspecified severity, without behavioral disturbance, psychotic disturbance, mood disturbance, and anxiety; Z83.3 Family history of diabetes mellitus; Z95.5 Presence of coronary angioplasty implant and graft; Z91.148 Patient's other noncompliance with medication regimen for other reason; Z82.49 Family history of ischemic heart disease and other diseases of the circulatory system; Z79.82 Long term (current) use of aspirin; Z95.1 Presence of aortocoronary bypass graft
CPT/HCPCS: 36415; 71045; 80048; 80061; 80076; 80305; 81003; 82962; 83036; 83735; 83880; 84100; 84439; 84484; 85025; 85379; 93005; 93970; 99285; J1650; J1815

== ENCOUNTER 2025-07-05 14:18 | Emergency (ER) | payer MEDICARE, MEDICAID ==
[~2025-07-05] VITALS: Ht 177.8 cm; Wt 81.0 kg
[~2025-07-05 14:18] MED LIST changes: +ALLO100T PO; +LEVO75TA7 PO; +LOSA50TA41 PO; -METO-539 MT; +METO-539 PO
[2025-07-05 14:24] VITALS: O2SAT 99
[2025-07-05 15:12] LABS: BASOPHILS % 0.9 % (0.0-2.0); EOSINOPHILS % 8.6 % (0.0-5.0); HEMATOCRIT. 36.1 % (42.0-52.0); HEMOGLOBIN. 11.5 g/dL (14.0-18.0); LYMPHOCYTES % 29.8 % (20.0-50.0); MEAN PLATELET VOLUME 8.3 fl (7.4-10.4); MONOCYTES % 7.2 % (2.0-8.0); NEUTROPHILS % 53.5 % (40.0-76.0); PLATELET 201 x1000/uL (130-400); RED BLOOD CELL COUNT 4.39 mill/uL (4.7-6.1); RED CELL DISTRIBUTION WIDTH 18.6 % (11.6-14.6)
[2025-07-05 15:16] LABS: CREATININE 0.9 mg/dL (0.6-1.3); UREA NITROGEN BLOOD 10 mg/dL (9-23)
[2025-07-05 15:17] LABS: TROPONIN I HIGH SENSITIVITY 8 ng/L (3.0-53)
[2025-07-05 18:20] VITALS: BP 152/73; PULSE 64; RESP 12; TEMP 36.7; O2SAT 98
== END 2025-07-05 18:21 ==
LOC: ER 14:18 → CANBEDREQ 16:14 → ER 18:21
DX: R07.89 Other chest pain (principal); E03.9 Hypothyroidism, unspecified; E78.00 Pure hypercholesterolemia, unspecified; F03.90 Unspecified dementia, unspecified severity, without behavioral disturbance, psychotic disturbance, mood disturbance, and anxiety; Z79.899 Other long term (current) drug therapy
CPT/HCPCS: 36415; 71045; 80048; 84484; 85025; 93005; 99285